=== PATIENT | male | born 1950 | race Caucasian/White ===

== ENCOUNTER 2017-05-10 09:11 | Inpatient (IN) | payer OTHER ==
[2017-05-04 11:26] LABS: Basophils # (auto) 0 uL; Basophils % (auto) 0.6 % (0.0-2.0); Hemoglobin 18.6 g/dL (13.5-17.5); INR 1.06 (0.9-1.15); Monocytes # (auto) 0.9 uL; Neutrophils # (auto) 4.6 uL; Partial Thromboplastin Time 29.1 sec (22.64-33.71); Prothrombin Time 11.6 sec (9.37-12.3)
[2017-05-04 11:28] LABS: Eosinophils # (auto) 0.7 uL; Hematocrit 55.7 % (41.0-53.0); Lymphocytes # (auto) 1.9 uL; Lymphocytes % (auto) 23.4 % (10.0-50.0); Mean Corpuscular Hemoglobin 30.6 pg (28.0-32.0); Mean Corpuscular Hgb Conc. 33.5 g/dL (32.0-36.0); Mean Corpuscular Volume 91.3 fL (80.0-100.0); Monocytes % (auto) 10.9 % (0.0-12.0); Neutrophils % (auto) 57.1 % (37.0-80.0); Nucleated Red Blood Cells % 0.1 %; Platelet Count (auto) 158 10^3/uL (140-450); Red Blood Cells 6.09 10^6/uL (4.5-5.90); Red Cell Distribution Width 13.9 % (11.8-14.3); White Blood Cell 8.1 10^3/uL (4.4-10.8)
[2017-05-04 11:34] LABS: Urine Bacteria NONE SEEN /hpf (None Seen); Urine Blood Negative /uL (Negative); Urine Specific Gravity 1.018 (1.001-1.035); Urine WBC <1 /hpf (0 - 3)
[2017-05-04 11:37] LABS: Albumin 3.7 g/dL (3.4-5.0); BUN/Creatinine Ratio 11.9; Bilirubin, Total 0.9 mg/dL (0.2-1.0); Calcium 9.4 mg/dL (8.5-10.1); Potassium 4.3 mmol/L (3.5-5.1)
[~2017-05-10] VITALS: Ht 175.3 cm; Wt 105.6 kg
[~2017-05-10 09:11] MED LIST: ASPI325T4 PO; LEVO112T4 PO; METO25TA62 PO; SIMV10TA84 PO
[2017-05-10] MEDS ORDERED: LEVOFLOXACIN 500MG 100 ML IV ONE (10:22)
[2017-05-10] MEDS ORDERED: LIDOCAINE 1% HCL (LOCAL ANESTH.) INJ 20ML MDV ONE (10:28)
[2017-05-10] MEDS ORDERED: BUPIVACAINE 0.25% INJ 50ML VIAL ONE (10:29)
[2017-05-10] MEDS ORDERED: LIDOCAINE W/ EPINEPHRINE 1 % INJ 30ML ONE (10:29)
[2017-05-10] MEDS ORDERED: MIDAZOLAM HCL 1MG/1ML-2 ML VIAL ONE (10:30)
[2017-05-10] MEDS ORDERED: ceFAZolin 1GM/50ML 50 ML IV ONE (10:30)
[2017-05-10] MEDS ORDERED: ONDANSETRON HCL 4 MG/2 ML VIAL ONE (10:31)
[2017-05-10] MEDS ORDERED: METOCLOPRAMIDE HCL 5MG/ml INJ 2ml VIAL ONE (10:31)
[2017-05-10] MEDS ORDERED: fentaNYL CITRATE 5 ML ONE (10:31)
[2017-05-10] MEDS ORDERED: LIDOCAINE HCL 2 %PF INJ 10ML AMP IJ ONE (10:31)
[2017-05-10] MEDS ORDERED: PROPOFOL 10 MG/ML 20 ML IV ONE (10:31)
[2017-05-10] MEDS ORDERED: PHENYLEPHRINE HCL 10 MG/ML VL ONE (11:33)
[2017-05-10] MEDS ORDERED: ROCURONIUM 10MG/ML 10ML VIAL IV ONE ×2 (12:03→12:04)
[2017-05-10] MEDS ORDERED: NEOSTIGMINE 1 MG/ML INJ (10mg/10ML VIAL) ONE (12:17)
[2017-05-10] MEDS ORDERED: GLYCOPYRROLATE 0.2 MG/ML 1ML VIAL ONE (12:17)
[2017-05-10] MEDS ORDERED: LABETALOL HCL 5 MG/ML 4ML SYRINGE IV PRN (13:30)
[2017-05-10] MEDS ORDERED: NALOXONE HCL 0.4 MG/ML VIAL IV PRN (13:30)
[2017-05-10] MEDS ORDERED: hydrALAZINE HCL 20 MG/ML VL IV PRN (13:30)
[2017-05-10] MEDS ORDERED: fentaNYL CITRATE 100 MCG/2 ML VL IV ONE (14:00)
[2017-05-10] MEDS ORDERED: MORPHINE SULFATE 10 MG/ML INJ 1ML SDV IV PRN (14:30)
[2017-05-10] MEDS ORDERED: ACETAMINOPHEN/CODEINE#3 (300/30mg) TAB PO PRN (14:30)
[2017-05-10] MEDS ORDERED: ONDANSETRON HCL 4 MG/2 ML VIAL IV PRN (14:30)
[2017-05-10] MEDS ORDERED: NITROGLYCERIN 0.4 MG SL TAB SL PRN (14:30)
[2017-05-10] MEDS ORDERED: diphenhdrAMINE HCL 50 MG/1 ML VL IV PRN (14:30)
[2017-05-10 15:21] LABS: BUN/Creatinine Ratio 11.4; Calcium 8.9 mg/dL (8.5-10.1); Potassium 4.3 mmol/L (3.5-5.1)
[2017-05-10 16:03] VITALS: BP 131/75
[2017-05-10] MEDS: METOPROLOL SUCCINATE XL 50 MG TAB PO SCH (16:32)
[2017-05-10] MEDS: D5W/SOD CHL 0.45% 1,000 ML IV SCH ×2 (16:38→22:52)
[2017-05-10] MEDS: CEFOXITIN SODIUM 1 GM in D5W 5% 50 ML IV SCH ×2 (16:52→23:01)
[2017-05-10 17:00] VITALS: BP 131/75
[2017-05-10 20:00] VITALS: BP 127/79
[2017-05-10] MEDS: HYDROmorphone HCL 2 MG/ML VL IV PRN (21:20)
[2017-05-10 21:30] VITALS: BP 127/79
[2017-05-10] MEDS ORDERED: PRAVASTATIN SODIUM 20 MG TAB PO SCH (22:00)
[2017-05-11 05:00] VITALS: BP 107/66
[2017-05-11] MEDS: D5W/SOD CHL 0.45% 1,000 ML IV SCH (06:02)
[2017-05-11] MEDS ORDERED: LEVOTHYROXINE SODIUM 112 MCG TAB PO SCH (07:00)
[2017-05-11 08:00] VITALS: BP 99/67
[2017-05-11 08:09] VITALS: BP 99/67
[2017-05-11] MEDS: HYDROmorphone HCL 2 MG/ML VL IV PRN ×2 (09:30→16:59)
[2017-05-11] MEDS: CEFOXITIN SODIUM 1 GM in D5W 5% 50 ML IV SCH (09:31)
[2017-05-11] MEDS: METOPROLOL SUCCINATE XL 50 MG TAB PO SCH (10:00)
[2017-05-11 12:30] VITALS: BP 105/58
[2017-05-11 14:55] VITALS: BP 105/58
[2017-05-11 17:11] VITALS: BP 114/63
== END 2017-05-11 18:30 | disposition home or self-care (01) | DRG 708 ==
LOC: SUR 09:11 → TELE-EAST 09:12 → EAST 16:46 → TELE-EAST 17:02
PROVIDERS: ADMIT Urology; ATTEND Urology
PROC: 07TC4ZZ Resection of Pelvis Lymphatic, Percutaneous Endoscopic Approach (ICD-10-PCS; 2017-05-10)
PROC: 8E0W4CZ Robotic Assisted Procedure of Trunk Region, Percutaneous Endoscopic Approach (ICD-10-PCS; 2017-05-10)
PROC: 0VT04ZZ Resection of Prostate, Percutaneous Endoscopic Approach (ICD-10-PCS; principal; 2017-05-10 10:35)
DX: C61 Malignant neoplasm of prostate (principal); I11.0 Hypertensive heart disease with heart failure; I50.9 Heart failure, unspecified; E78.5 Hyperlipidemia, unspecified; E03.9 Hypothyroidism, unspecified; I25.2 Old myocardial infarction; Z82.3 Family history of stroke; Z83.3 Family history of diabetes mellitus; Z82.49 Family history of ischemic heart disease and other diseases of the circulatory system; Z88.5 Allergy status to narcotic agent; Z88.6 Allergy status to analgesic agent; Z79.82 Long term (current) use of aspirin; Z79.899 Other long term (current) drug therapy
CPT/HCPCS: 36415; 80048; 80053; 81001; 85025; 85610; 85730; 86850; 86900; 86901; 87086; J0690; J1956; J2001; J2250; J2405; J2704; J3490; J7060

== ENCOUNTER 2017-06-01 09:56 | Emergency (ER) | payer OTHER ==
[~2017-06-01] VITALS: Ht 175.3 cm; Wt 102.1 kg
[2017-06-01 10:04] VITALS: BP 150/99
[2017-06-01] MEDS ORDERED: cefTRIAXone 1GM/50ML D5W 50 ML IV ONE ×2 (11:00)
== END 2017-06-01 12:16 | disposition home or self-care (01) ==
LOC: ER 09:56
DX: L08.9 Local infection of the skin and subcutaneous tissue, unspecified (principal); M10.9 Gout, unspecified; E78.5 Hyperlipidemia, unspecified; I10 Essential (primary) hypertension; I25.2 Old myocardial infarction; Z87.891 Personal history of nicotine dependence; Z95.1 Presence of aortocoronary bypass graft; Z88.0 Allergy status to penicillin; Z88.6 Allergy status to analgesic agent
CPT/HCPCS: 96365; 96366; 99284; J0696; J7030

== ENCOUNTER 2019-08-16 09:06 | Inpatient (IN) | payer OTHER ==
[~2019-08-16] VITALS: Ht 175.3 cm; Wt 104.8 kg
[~2019-08-16 09:06] MED LIST changes: -ASPI325T4 PO; +CLON0.1T PO; +METO-169 PO; -METO25TA62 PO
[2019-08-16 10:16] LABS: Basophils # (auto) 0.1 uL; Eosinophils # (auto) 0.4 uL; Eosinophils % (auto) 5.2 % (0.0-7.0); Lymphocytes # (auto) 1.1 uL; Monocytes # (auto) 0.9 uL; Neutrophils # (auto) 4.8 uL; Nucleated Red Blood Cells % 0.1 %
[2019-08-16 10:20] LABS: Mean Corpuscular Hemoglobin 30.4 pg (28.0-32.0); Mean Corpuscular Volume 89.3 fL (80.0-100.0); Monocytes % (auto) 12.6 % (0.0-12.0); Neutrophils % (auto) 66.2 % (37.0-80.0); Platelet Count (auto) 172 10^3/uL (140-450); Red Blood Cells 5.93 10^6/uL (4.5-5.90); Red Cell Distribution Width 13.9 % (11.8-14.3); White Blood Cell 7.3 10^3/uL (4.4-10.8)
[2019-08-16 10:31] LABS: Albumin 3.4 g/dL (3.4-5.0); Calcium 8.8 mg/dL (8.5-10.1); Potassium 4.3 mmol/L (3.5-5.1)
[2019-08-16 10:37] LABS: BUN/Creatinine Ratio 13.8; Bilirubin, Total 0.8 mg/dL (0.2-1.0); Total Protein 7.4 g/dL (6.4-8.2)
[2019-08-16] MEDS ORDERED: ONDANSETRON HCL 4 MG/2 ML VIAL IV PRN (12:30)
[2019-08-16] MEDS ORDERED: TEMAZEPAM 15 MG CAP PO PRN (12:30)
[2019-08-16] MEDS ORDERED: DOCUSATE SOD 100 MG CAP PO PRN (12:30)
[2019-08-16] MEDS ORDERED: ACETAMINOPHEN 325 MG TAB PO PRN (12:30)
[2019-08-16] MEDS ORDERED: MORPHINE SULF INJ 2 MG/ML SYRINGE 1ML IV PRN (12:30)
[2019-08-16] MEDS ORDERED: NITROGLYCERIN 0.4 MG SL TAB SL PRN (12:30)
--- NOTE | 2019-08-16 14:30 | NUR ---
Telemetry admit from ER THERESANORMSHEYLA admitted to Telemetry unit after SBAR received. Patient oriented to CHIOMA WISEMAN, primary RN, unit, room, bed, and unit policies regarding patient care and visiting hours. Patient now on continuous telemetry monitoring, tele box # 76 and telemetry reading on arrival to unit is . Patient placed on bedside oxygen, weighed by bed scale and encouraged to call if they need something. All questions and concerns addressed, patient verbalized understanding.
[2019-08-16 16:54] VITALS: BP 134/83
--- NOTE | 2019-08-16 17:27 | NUR ---
Critical Trop 0.685, MD paged awaiting to call back.
--- NOTE | 2019-08-16 18:01 | NUR ---
Dr. Ko paged regarding trop 0.675. Awaiting to call back.
[2019-08-16] MEDS: TICAGRELOR 90 MG TAB PO SCH (21:11)
[2019-08-16] MEDS: ASCORBIC ACID 500 MG TAB PO SCH (21:12)
[2019-08-16 21:52] VITALS: BP 141/93
[2019-08-16] MEDS ORDERED: ATORVASTATIN 20 MG TAB PO SCH (22:00)
[2019-08-16] MEDS: FAMOTIDINE 20 MG TAB PO SCH (22:00)
--- NOTE | 2019-08-16 23:51 | NUR ---
TROPONIN 0643 AND TRENDING DOWN.
[2019-08-17 05:24] LABS: Eosinophils # (auto) 0.4 uL; Monocytes # (auto) 0.8 uL; Neutrophils # (auto) 4.4 uL; Neutrophils % (auto) 62.6 % (37.0-80.0); Red Blood Cells 5.88 10^6/uL (4.5-5.90)
[2019-08-17 05:26] LABS: Basophils # (auto) 0.1 uL; Basophils % (auto) 0.8 % (0.0-2.0); Eosinophils % (auto) 5.8 % (0.0-7.0); Hematocrit 52.3 % (41.0-53.0); Hemoglobin 17.7 g/dL (13.5-17.5); Lymphocytes # (auto) 1.3 uL; Mean Corpuscular Hemoglobin 30.1 pg (28.0-32.0); Mean Corpuscular Hgb Conc. 33.9 g/dL (32.0-36.0); Monocytes % (auto) 11.8 % (0.0-12.0); Nucleated Red Blood Cells % 0.1 %; Platelet Count (auto) 172 10^3/uL (140-450); Red Cell Distribution Width 14.1 % (11.8-14.3)
[2019-08-17 05:33] VITALS: BP 128/91
[2019-08-17 05:39] LABS: Albumin 3.2 g/dL (3.4-5.0); Calcium 8.8 mg/dL (8.5-10.1); Potassium 4.3 mmol/L (3.5-5.1)
[2019-08-17 05:44] LABS: BUN/Creatinine Ratio 14.1; Bilirubin, Total 0.9 mg/dL (0.2-1.0)
[2019-08-17 05:49] LABS: INR 1.09 (0.9-1.15); Partial Thromboplastin Time 29.2 sec (23.64-32.05)
--- NOTE | 2019-08-17 06:39 | NUR ---
TROPONIN LEVEL IS NOW 0.535;TRENDING DOWN.
[2019-08-17] MEDS ORDERED: LEVOTHYROXINE SODIUM 112 MCG TAB PO SCH (07:00)
--- NOTE | 2019-08-17 07:20 | NUR ---
PT AWAKE, ALERT, ORIENTEDx4. DENIES DISCOMFORT AT MOMENT, EFFORTLESS BREATHING ON ROOM AIR. PT BOTHERED- VOICES DUE TO NOT BEEN SEEN BY MD AND REPORTS HE WANTS TO SEE DECKHAND TUNA BOAT. PT WAS EXPLAINED POC, PT VOICES THAT IF HE IS NOT SEEN BY MD BY 1400 HE WILL SIGN HIMSELF OUT. WILL CONTINUE TO MONITOR.
--- NOTE | 2019-08-17 08:30 | NUR ---
PT AMBULATING IN HALLWAYS, RECOMMENDED ANTI-SLIP SOCKS TO PT, PT REFUSED TO WEAR ANTI-SLIP AND PREFERRED TO STAY WITH OWN SOCKS.
[2019-08-17 09:00] VITALS: BP 153/90
[2019-08-17] MEDS ORDERED: METOPROLOL SUCCINATE XL 50 MG TAB PO SCH (10:00)
[2019-08-17] MEDS ORDERED: CLOPIDOGREL BISULFATE 75 MG TAB PO SCH (10:00)
[2019-08-17] MEDS ORDERED: ZINC SULFATE 220mg CAP or TAB PO SCH (10:00)
[2019-08-17] MEDS: FAMOTIDINE 20 MG TAB PO SCH (10:00)
[2019-08-17] MEDS ORDERED: ASPirin-EC 81 mg tab PO SCH (10:00)
[2019-08-17] MEDS ORDERED: ENOXAPARIN SOD 40 MG/0.4 ML SYRINGE SC SCH (10:00)
[2019-08-17] MEDS: ASCORBIC ACID 500 MG TAB PO SCH (10:37)
[2019-08-17] MEDS: TICAGRELOR 90 MG TAB PO SCH (10:38)
--- NOTE | 2019-08-17 13:21 | NUR ---
PT SEEN BY DR. PORTER. PER MD; PT OK TO BE DC'D DISCHARGE INSTRUCTIONS PROVIDED TO PT. PT VERBALIZED UNDERSTANDING FOR CONTINUATION OF HOME MEDICATIONS AND FOLLOW UP APPOINTMENT WITH PCP AND CARDIOLOGY. ALL EDUCATIONAL MATERIAL PROVIDED, QUESTIONS AND CONCERNS ADDRESSED. TELE BOX REMOVED AND RETURNED TO TELE DEPT. IV CATHETER DC'D, CATHETER INTACT, NO PHLEBITIS. PT SAFELY ESCORTED OUT OF UNIT.
== END 2019-08-17 13:30 | disposition home or self-care (01) | DRG 880 ==
LOC: ER 09:06 → TELE 09:07 → TELE-WESTW 14:05
PROVIDERS: ADMIT Emergency Medicine; ATTEND Emergency Medicine
DX: F41.9 Anxiety disorder, unspecified (principal); I13.0 Hypertensive heart and chronic kidney disease with heart failure and stage 1 through stage 4 chronic kidney disease, or unspecified chronic kidney disease; I25.10 Atherosclerotic heart disease of native coronary artery without angina pectoris; N18.2 Chronic kidney disease, stage 2 (mild); M10.9 Gout, unspecified; I25.2 Old myocardial infarction; I50.9 Heart failure, unspecified; J44.9 Chronic obstructive pulmonary disease, unspecified; Z90.89 Acquired absence of other organs; Z82.49 Family history of ischemic heart disease and other diseases of the circulatory system; Z83.3 Family history of diabetes mellitus; Z95.1 Presence of aortocoronary bypass graft; Z95.5 Presence of coronary angioplasty implant and graft; Z87.891 Personal history of nicotine dependence; Z79.899 Other long term (current) drug therapy
CPT/HCPCS: 36415; 71046; 80053; 83880; 84484; 85025; 85610; 85730; 87081; 93005; 93306; G0378

== ENCOUNTER 2025-03-23 09:15 | Day surgery (SDC) | payer OTHER ==
[~2025-03-23] VITALS: Ht 172.7 cm; Wt 88.5 kg
[~2025-03-23 09:15] MED LIST changes: +CHL4PW PO; -METO-169 PO; +METO-289 PO; +SIMV10TA20 PO; -SIMV10TA84 PO; +VANC125C3 PO
[2025-03-23] MEDS ORDERED: fentaNYL CITRATE 100 MCG/2 ML VL ONE (10:12)
[2025-03-23] MEDS ORDERED: MIDAZOLAM HCL 2MG/2ML 2ml VIAL (1mg/ml) ONE (10:13)
[2025-03-23] MEDS: LIDOCAINE VISCOUS 2% 15ML UD PO ONE (11:00)
[2025-03-23] MEDS: fentaNYL CITRATE 100 MCG/2 ML VL IV ONE (11:00)
[2025-03-23] MEDS: MIDAZOLAM HCL 2MG/2ML 2ml VIAL (1mg/ml) IV ONE (11:03)
[2025-03-23 11:10] VITALS: BP 123/69; PULSE 61; RESP 15; O2SAT 100
[2025-03-23 11:26] VITALS: BP 119/79; PULSE 60; RESP 12; O2SAT 99
[2025-03-23 11:41] VITALS: BP 125/81; PULSE 60; RESP 18; O2SAT 99
[2025-03-23 12:11] VITALS: BP 156/93; PULSE 60; RESP 18; O2SAT 100
--- NOTE | 2025-03-23 12:41 | DVHOP2 ---
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 The patient was brought to the cardiac lab asst in n.p.o. state. the patient was given 15 ml of oral viscous lidocaine. the patient was placed in a left lateral decubitus position with bite block in mouth. NExt conscious sedation was administered per lab asst protocol with _1_ mg of versed and __50_ mcg of fentanyl. Next a FIDEL probe was advanced to the mid esophagus with ease and multiple planar images obtained. At the completion of the procedure , probe was removed and there were no immediate complications. FINDINGS: Left Ventricle: Normal LV size and function, LVEF estimated at 50-55% Right Ventricle: NOrmal RV sfunction Left atrium: enlarged, Right atrium: normal RA Left atrial appendage: no thrombus noted, Aortic valve: sp prosthetic AV, no sig AI noted, the AV by planimeter is 1.1 cm2 and on surface echo AV mean gradient of 28 mmhg , AV max grad of 26 mmhg pht 542 msec Mitral Valve: structurally normal, moderate mitral regurg, no MS Tricuspid Valve: mild tricuspid regurgitaiton, no TS Pulmonic Valve: structurally normal, no severe PI or PS Interatrial septum: negative color flow for R to L shunt Ascending aorta: severe dilatation of [address] junction and ascending aorta, non con CT read as 60 mm . JARON MEEKS MD Mar 23, 2025 12:41
== END 2025-03-23 12:25 | disposition home or self-care (01) ==
LOC: CATH 09:15
PROVIDERS: ATTEND Internal Medicine
DX: I71.21 Aneurysm of the ascending aorta, without rupture (principal); I08.1 Rheumatic disorders of both mitral and tricuspid valves; I13.0 Hypertensive heart and chronic kidney disease with heart failure and stage 1 through stage 4 chronic kidney disease, or unspecified chronic kidney disease; I50.9 Heart failure, unspecified; N18.30 Chronic kidney disease, stage 3 unspecified; E78.5 Hyperlipidemia, unspecified; I95.9 Hypotension, unspecified; Z79.890 Hormone replacement therapy; Z79.899 Other long term (current) drug therapy; Z95.1 Presence of aortocoronary bypass graft; Z95.2 Presence of prosthetic heart valve; Z85.46 Personal history of malignant neoplasm of prostate; Z95.5 Presence of coronary angioplasty implant and graft; Z87.891 Personal history of nicotine dependence; Z88.0 Allergy status to penicillin; Z88.5 Allergy status to narcotic agent; Z82.3 Family history of stroke; Z83.3 Family history of diabetes mellitus; Z80.9 Family history of malignant neoplasm, unspecified; Z82.49 Family history of ischemic heart disease and other diseases of the circulatory system
CPT/HCPCS: 93312; 93325; J2250; J3010

== ENCOUNTER 2025-06-24 16:47 | Inpatient (IN) | payer OTHER ==
[~2025-06-24] VITALS: Ht 182.9 cm; Wt 90.0 kg
[2025-06-24 17:16] LABS: Hematocrit 30.3 % (41.0-53.0); Hemoglobin 10.0 g/dL (13.5-17.5); Mean Corpuscular Hemoglobin 31.0 pg (28.0-32.0); Mean Corpuscular Volume 93.6 fL (80.0-100.0); Nucleated Red Blood Cells % 0.0 %
[2025-06-24 17:31] LABS: Anion Gap 9 (5-15); BUN/Creatinine Ratio 9.6 (10.0-20.0); Blood Urea Nitrogen 18 mg/dL (9-23); Carbon Dioxide 24 mmol/L (20-31); Chloride 106 mmol/L (98-107); Glucose 96 mg/dL (74-106); Magnesium 2.0 mg/dL (1.6-2.6); Potassium 3.9 mmol/L (3.5-5.1); Sodium 139 mmol/L (136-145)
[2025-06-24 17:33] LABS: Alanine Aminotransferase 79 U/L (7-40); Albumin 3.0 g/dL (3.2-4.8); Alkaline Phosphatase 311 U/L (46-116); Bilirubin, Total 3.0 mg/dL (0.2-1.0); Calcium 8.2 mg/dL (8.7-10.4); Total Protein 5.4 g/dL (5.7-8.2)
--- NOTE | 2025-06-24 17:37 | ED.PDOC ---
HPI Comments CHUNCHICK: Three day of midsternal chest pain and dyspnea. Extremity pitting edema 3/4 Sent 50% resection of liver cancer at [facility]. Patient has been home with the last five days. Weight scale was severe initially but took full-dose aspirin which helped him with the his symptoms significantly. Patient got nitroglycerin in route by EMS. Vital signs are otherwise unremarkable. Past medical history: Rectal cancer,prostate cancer, right renal cancer, CAD, hypertension and 2 x [place], COPD, CHF, thyroid, gout, HLD, Past surgical history: status post prostatectomy,, status post nephrectomy, aortic aneurysm repair, aortic valve replacement Medications: Allergies: Social history: Denies ETOH, denies tobacco use, denies drug use Chief Complaint: Chest Pain Time Seen by MD: 16:47 Primary Care Provider: ASIF Bell Notes: Nurses Notes, Allergies Allergies: Coded Allergies: Morphine (Unverified Allergy, Severe, 05/04/17) Penicillins (Unverified Allergy, Severe, 05/04/17) Home Meds Active Scripts Furosemide (Lasix) 40 Mg Tab, 40 MG PO DAILY, #30 TAB Prov:MONIK COLLAZO MD 06/27/25 Cholestyramine (QUESTRAN POWDER) 4 Gm Pw, 4 GM PO BID, #14 POW Prov:LUCERO JONES MD 03/21/22 Reported Medications Clopidogrel Bisulfate (Plavix) 75 Mg Tab, 75 MG PO DAILY, TAB 06/24/25 Clonidine Hydrochloride (Clonidine Hcl) 0.1 Mg Tab, 0.1 MG PO HS for 30 Days, MG 08/07/19 Simvastatin (Simvastatin) 10 Mg Tab, 5 MG PO QPM for 30 Days, MG 08/07/19 Metoprolol Succinate (Metoprolol Succinate Er) 50 Mg Tab, 50 MG PO DAILY for 30 Days, MG 08/07/19 Levothyroxine Sodium (Levothyroxine Sodium) 112 Mcg Tab, 112 MCG PO QAM for 30 Days, MCG 05/12/14 Information Source: Patient Mode of Arrival: EMS Past Medical History PAST MEDICAL HISTORY: Cancer, CHF, COPD, Gout, High Lipids, HTN, IN, Thyroid Surgical History: CABG, PTCA, Tonsillectomy Family History Family History: Family hx of DM, Family hx of heart brissa Social History Smoker: Quit Greater Than 1 Year, Cigar Alcohol: Denies ETOH Use Drugs: Denies Drug Use Lives In: Home Was a procedure done? Was a procedure done?: No CP Differential Dx Differential Diagnosis: N/A Differential Diagnosis: Other (Ddx include but not limitied to gastritis, mus culoskeletal pain, radiculopathy, atypical chest pain, dissection, aneurysm, ACS, unstable angina, hiatal hernia, GERD, anxiety, costochondritis, PE, pneumothroax, neoplasm, cardiac ischemia, drug abuse, anemia.) Comment DDx include ACS, unstable angina, anxiety, PE, pneumothroax, neoplasm, cardiac ischemia, COPD, asthma, CHF, pleural effusion, tobacco abuse, pneumonia, hypoxia, hypercapnia, anemia., infection/sepsis., pulmonary edema. Asthma, Cardiac tamponade, infection. X-Ray, Labs, Meds, VS Vital Signs Date Time Temp Pulse Resp B/P (MAP) Pulse Ox O2 Delivery O2 Flow Rate FiO2 06/24/25 21:30 69 15 114/75 (88) 99 06/24/25 20:00 73 06/24/25 19:47 98.1 60 18 124/81 (95) 97 98.1 06/24/25 19:47 89 18 97 Room Air* 0 21 06/24/25 18:40 71 16 120/81 (94) 97 06/24/25 18:39 120/81 06/24/25 18:22 74 06/24/25 18:06 71 18 98 Room Air* 0 21 06/24/25 17:21 98.2 71 18 130/79 (96) 99 98.2 06/24/25 16:57 72 06/24/25 16:50 98.0 81 18 121/80 98 98.0 Lab Test 06/24/25 21:50 06/24/25 20:35 06/24/25 18:28 06/24/25 17:02 Range/Units Urine Color Colorless Yellow Urine Clarity Clear Clear Urine pH 6.5 5.0-9.0 Urine Specific [place] 1.008 1.001-1.035 Urine Protein Negative Negative Urine Ketones Negative Negative Urine Blood 2+ H Negative /uL Urine Nitrite Negative Negative Urine Bilirubin Negative Negative Urine Urobilinogen Normal Negative mg/dL Urine Leukocyte Esterase Negative Negative /uL Urine RBC 1 0 - 3 /hpf Urine Microscopic WBC < 1 0-3 /HPF Urine Squamous Epithelial Cells None seen <5 /hpf Urine Bacteria None seen None Seen /hpf Urine Glucose Normal Normal mg/dL Troponin I High Sensitivity 86 *H 89 *H </=54 ng/L Sodium Level 139 136-145 mmol/L Potassium Level 3.9 3.5-5.1 mmol/L Chloride Level 106 98-107 mmol/L Carbon Dioxide Level 24 20-31 mmol/L Anion Gap 9 5-15 Blood Urea Nitrogen 18 9-23 mg/dL Creatinine 1.88 H 0.700-1.30 mg/dL Glomerular Filtration Rate Calc 37 >90 mL/min BUN/Creatinine Ratio 9.6 L 10.0-20.0 Serum Glucose 96 74-106 mg/dL Calcium Level 8.2 L 8.7-10.4 mg/dL Magnesium Level 2.0 1.6-2.6 mg/dL Total Bilirubin 3.0 H 0.2-1.0 mg/dL Aspartate Amino Transferase (AST) 131 H 13-40 U/L Alanine Aminotransferase (ALT) 79 H 7-40 U/L Alkaline Phosphatase 311 H 46-116 U/L B-Type Natriuretic Peptide 241.93 0-100 pg/mL Total Protein 5.4 L 5.7-8.2 g/dL Albumin 3.0 L 3.2-4.8 g/dL Test 06/24/25 17:01 Range/Units White Blood Count 10.1 4.4-10.8 10^3/uL Red Blood Count 3.24 L 4.5-5.90 10^6/uL Hemoglobin 10.0 L 13.5-17.5 g/dL Hematocrit 30.3 L 41.0-53.0 % Mean Corpuscular Volume 93.6 80.0-100.0 fL Mean Corpuscular Hemoglobin 31.0 28.0-32.0 pg Mean Corpuscular Hemoglobin Concent 33.2 32.0-36.0 g/dL Red Cell Distribution Width 18.2 H 11.8-14.3 % Platelet Count 227 140-450 10^3/uL Mean Platelet Volume 10.6 6.9-10.8 fL Neutrophils (%) (Auto) 68.3 37.0-80.0 % Lymphocytes (%) (Auto) 8.9 L 10.0-50.0 % Monocytes (%) (Auto) 17.3 H 0.0-12.0 % Eosinophils (%) (Auto) 4.7 0.0-7.0 % Basophils (%) (Auto) 0.8 0.0-2.0 % Neutrophils # (Auto) 6.9 1.6-8.6 10 ^3/uL Lymphocytes # (Auto) 0.9 0.4-5.4 10 ^3/uL Monocytes # (Auto) 1.8 H 0-1.3 10 ^3/uL Eosinophils # (Auto) 0.5 0-0.8 10 ^3/uL Basophils # (Auto) 0.1 0-0.2 10 ^3/uL Nucleated Red Blood Cells 0.0 % D-Dimer, Quantitative > 35.20 H 0.0-0.49 mg/L FEU Troponin I High Sensitivity 113 *H </=54 ng/L [place] [id number] Ph: [phone] DIAGNOSTIC IMAGING Diagnostic Imaging Report : [id number] Signed PATIENT: SHEYLA MENDOZA HACCT: [id number] UNIT: [id number] : 1950 LOC: ER ROOM / BED: / AGE / SEX: 75 / M ADM STATUS: REG ER SERVICE 48 ORDERING PHYSICIAN: IVAN CALI DO PROCEDURE(s): CXRP - CHEST PORTABLE REASON: cp/sob ORDER NUMBER(s): [id number], ACCESSION NUMBER(s): [id number] AP portable chest CLINICAL INDICATION: cp/sob FINDINGS: Central line tip in the low superior vena cava. Heart size is slightly enlarged with a left ventricular configuration. Aorta is tortuous. Slight prominence of the bronchovascular markings in the right lower lung zone. IMPRESSION: 1. Question of mild or early congestive changes in the right lower lung zone. ATED BY: LUCIA MORENO MD DICTATED DATE/TIME: 06/24/251735 SIGNED BY: LUCIA MORENO MD SIGNED DATE/TIME: 06/24/251735 CC: Time of 1ST Reevaluation: 18:40 (The case was discussed with the admitting team (HPI, physical exam, labs and diagnostic tests that were available at the time of disposition, ED course, treatment plan) on the phone. They agreed to admit the patient to their service and assume care of this patient from this point forward. --- ZAY. ) Reevaluation 1ST: N/A Patient Education/Counseling: Diagnosis, Treatment Family Education/Counseling: No Family Present Comments MDM: patient presented with the above HPI.--cardiac---workup was initiated. patient was found with the above mentioned diagnosis. the following medications were ordered: please refer to order lists of meds and tests obtained by myself Dr. Cali. Patient ED course and VS have been stabilized. Patient has been reassessed in the ED and remained in a stable condition. Pertinent incidental findings were discussed with the patient and/or family. Patient/family voices understanding and is agreeable with plan. Patient has been observed in the ED adequate length of time to insure improvement/stability. Escalation of care considered: Consideration of escalation to observation or admission Patient was ADMITTED to the medicine team for further evaluation and treatment of their presentation. All the reports of any imaging studies that were ordered by myself were reviewed by myself. Departure 1 Departure Time of Disposition: 18:30 Impression: Primary Impression: Chest pain Additional Impressions: Dyspnea Elevated troponin Elevated d-dimer Elevated LFTs Disposition: ADMITTED INPATIENT Admit to: Tele Condition: Guarded Discharged With: Self Critical Care Note Critical Care Time?: Yes (55 min-critical care time only) Critical care comment: Due to a high probability of clinically significant, life threatening deterioration, the patient required my highest level of preparedness to intervene emergently and I personally spent this critical care time directly and personally managing the patient. This critical care time included obtaining a history; examining the patient; pulse oximetry; ordering and review of studies; arranging urgent treatment with development of a management plan; evaluation of patient's response to treatment; frequent reassessment; and, discussions with other providers. This critical care time was performed to assess and manage the high probability of imminent, life-threatening deterioration that could result in multi-organ failure. It was exclusive of separately billable procedures and treating other patients and teaching time. Please see my other sections and the rest of the note for further information on patient assessment and treatment. Heart Score Heart Score: Heart Score Response (Comments) Value History Moderate Suspicious 1 EKG Normal 0 Age >65 2 Risk Factors >3 or Hx ASHD 2 Troponin 1-2 x's Normal limit 1 Total 6 I personally scribed for [facility] CALI [facility] on 06/24/25 at 18:10. Electr onically submitted by Ilana Donnelly ([facility]ANNER[facility]). I personally scribed for IVAN CALI DO ([facility] on 06/24/25 at 18:15. E lectronically submitted by Ilana Donnelly (CAROLYN[facility]EL). I personally scribed for IVAN CALI DO ([facility]) on 06/24/25 at 18:19. Electronically submitted by Abdi Negrete (MILA). IVAN CALI DO Jun 24, 2025 17:37
[2025-06-24 18:06] VITALS: PULSE 71; RESP 18; O2SAT 98
[2025-06-24] MEDS: FUROSEMIDE 40 MG/4 ML VIAL IV ONE (18:39)
--- NOTE | 2025-06-24 18:45 | ECG ---
[facility] Test Date: 2025-06-24 Test Time: 16:57:37 Pat Name: SHEYLA MENDOZA Department: [facility] ED Room: 0215T Gender: M Iron Melter: alexander : 1950 Requested By: IVAN CALI Order Number: [id number] Reading MD: Frederick Thompson Measurements Intervals [place] Rate: 72 P: 21 [place]: 162 QRS: -46 QRSD: 96 T: 62 QT: 426 QTc: 467 Interpretive Statements Sinus rhythm Probable left atrial enlargement Consider right ventricular hypertrophy Inferolateral infarct, old Electronically Signed On 06-25-2025 17:26:04 PST by Frederick Thompson Please click the below link to view image of tracing.
--- NOTE | 2025-06-24 18:45 | ECG ---
[facility] Test Date: 2025-06-24 Test Time: 18:22:16 Pat Name: SHEYLA MENDOZA Department: [facility] ED Patient ID: [facility]-[id number] Room: 0215T Gender: M Event Planner: nereida : 1950 Requested By: IVAN CALI Order Number: [id number] Reading MD: Frederick Thompson Measurements Intervals [place] Rate: 74 P: 66 CT: 165 QRS: -51 QRSD: 92 T: 85 QT: 476 QTc: 529 Interpretive Statements Sinus rhythm Left anterior fascicular block Consider anterior infarct Prolonged QT interval Electronically Signed On 06-25-2025 17:26:17 PST by Frederick Thompson Please click the below link to view image of tracing.
[2025-06-24] MEDS: IOHEXOL 350 MG/ML 100ML IJ ONE (19:07)
--- NOTE | 2025-06-24 19:29 | DVH ---
CTA Chest with intravenous contrast INDICATION: cp/sob COMPARISON: CT CHEST WO on DOS: 05/25/25, MR ANGIO CHEST WO /W on DOS: 05/04/25, CT CHEST WO on DOS: 03/12/25 TECHNIQUE: Multidetector spiral CTA of the chest was performed of the chest with intravenous contrast. PULMONARY ANGIOGRAPHY PROTOCOL was utilized using a bolus- tracking technique centered on the main pulmonary artery. Axial, coronal and sagittal multiplanar and MIP reformats were performed. Radiation Dose : 1. Chest: CTDI volume is 27.69 mGy. Dose-length product is 1012.72 mGy*cm The dose indicators for CT are the volume Computed Tomography (CT) Dose Index (CTDIvol) and the Dose Length Product (DLP), and are measured in units of mGy and mGy-cm, respectively. These indicators are not patient dose, but values generated from the CT scanner acquisition factors. The report includes radiation exposure data for exposures received during this examination. Contrast: 100 cc Omnipaque 350. FINDINGS: Pulmonary artery: No pulmonary embolism Lower neck: Normal thyroid. Lungs: Central airways patent. Mild diffuse interlobular septal thickening with mild hazy ground-glass opacity throughout both lungs. Mild passive atelectatic changes within the dependent basal right lower lobe. Heart/Vascular Structures: Multi chamber cardiac enlargement. Previous sternotomy. Coronary calcifications. No pericardial effusion. Lymph Nodes: No adenopathy Pleura: Small right-sided pleural effusion. Musculoskeletal: No acute osseous abnormality. Soft tissues: Normal. Upper abdomen: Small volume of ascites in the upper abdomen. IMPRESSION: No pulmonary embolus. Mild pulmonary edema. Small right-sided pleural effusion with mild right basilar atelectasis /consolidation.
[2025-06-24] MEDS: SODIUM CHLORIDE 0.9% 500 ML IV ONE ×2 (19:45→22:15)
[2025-06-24 19:47] VITALS: PULSE 89; RESP 18; O2SAT 97
--- NOTE | 2025-06-24 20:57 | ECG ---
[facility] Test Date: 2025-06-24 Test Time: 19:57:36 Pat Name: SHEYLA MENDOZA Department: [facility] ED Patient ID: [facility]-[id number] Room: 0215T Gender: M Lead Caster: MAXIMO : 1950 Requested By: IVAN CALI Order Number: [id number] Reading MD: Frederick Thompson Measurements Intervals [place] Rate: 72 P: 22 [place]: 167 QRS: -46 QRSD: 100 T: 55 QT: 451 QTc: 494 Interpretive Statements Sinus rhythm Inferolateral infarct, old Electronically Signed On 06-25-2025 17:26:27 PST by Frederick Thompson Please click the below link to view image of tracing.
[2025-06-24] MEDS ORDERED: CLOP75TA28 PO (22:11)
[2025-06-24] MEDS ORDERED: MORPHINE SULFATE INJ 2 MG/ml SYRG IV PRN (22:15)
[2025-06-24] MEDS ORDERED: DOCUSATE SOD 100 MG CAP PO PRN (22:15)
[2025-06-24] MEDS ORDERED: ONDANSETRON HCL 4 MG/2 ML VIAL IV PRN (22:15)
[2025-06-24] MEDS ORDERED: NITROGLYCERIN 0.4 MG SL TAB SL PRN (22:15)
[2025-06-24] MEDS ORDERED: ACETAMINOPHEN 325 MG TAB PO PRN (22:15)
[2025-06-24 23:24] LABS: Urine Protein, UAD Negative (Negative)
[2025-06-25] VITALS (7 sets, daily range): BP systolic 126–144; BP diastolic 80–91; PULSE 67–76; RESP 18–19; TEMP 36.2; O2SAT 96–100
--- NOTE | 2025-06-25 04:06 | DVHHP2 ---
SHERRI DAHL EXTENSION EDGER 06/25/25 0406: History of Present Illness Reason for Visit: Chest pain/shortness of breath History of Present Illness 75-year-old male with past medical history of CAD, three-vessel CABG, aortic aneurysm, prostate cancer, liver cancer, single kidney, recent hepatic lobectomy (06/10/25) at [facility] presents with complaints of chest pain and shortness of breath. Chest pain is described substernal 04/17 which improved after receiving aspirin from EMS. Patient is also endorsing worsening orthopnea over the previous 4 days. Patient endorses that after his surgical intervention at [facility] was very edematous upon discharge. During the emergency department evaluation troponin 119/89/86. D-dimer elevated 35. At this time patient endorses improvement in chest pain. There are no complaints of fevers, chills, dizziness, headache, palpitations, nausea, vomiting. Cardiovascular: CAD, CHF, HTN, hyperipidemia Heme/Onc: Cancer Renal/: Chronic renal insuff Endocrine: Hypothyroidism Past Surgical History: CABG Smoke: No ALCOHOL: none Drugs: None Lives: with Family Review of Systems Constitutional: No: Fever, Chills, Sweats, Weakness, Malaise, Other Eyes: No: Pain, Vision change, Conjunctivae inflammation, Eyelid inflammation, Other, Redness ENT: No: Ear pain, Ear discharge, Nose pain, Nose discharge, Nose congestion, Mouth pain, Mouth swelling, Throat pain, Throat swelling, Other Respiratory: Shortness of breath, SOB with excertion; No: Cough, Dry, Wheezing, Hemoptysis, Pleuritic Pain, Sputum, Wheezing, Other Cardiovascular: Chest Pain, Orthopnea, Edema; No: Palpitations, Paroxysmal Noc. Dyspnea, Lt Headedness, Other Gastrointestinal: No: Nausea, Vomiting, Abdominal Pain, Diarrhea, Constipation, Melena, Hematochezia, Other Genitourinary: No Dysuria, No Frequency, No Incontinence, No Hematuria, No Retention, No Other Musculoskeletal: No: other, neck pain, shoulder pain, arm pain, back pain, hand pain, leg pain, foot pain Skin: No: Rash, Lesions, Jaundice, Bruising, Other Neurological: No: Weakness, Numbness, Incoordination, Change in speech, Confusion, Seizures, Other Allergies: Coded Allergies: Morphine (Unverified Allergy, Severe, 05/04/17) Penicillins (Unverified Allergy, Severe, 05/04/17) Medications Current Medications Medications Dose Ordered Sig/Pamela Route Start Time Stop Time Status Last Admin Dose Admin Docusate Sodium 100 mg BIDPRN PRN PO 06/24/25 22:15 Acetaminophen 650 mg Q6HP PRN PO 06/24/25 22:15 Ondansetron HCl 4 mg Q4HP PRN IV 06/24/25 22:15 Nitroglycerin 0.4 mg Q5MINP PRN SL 06/24/25 22:15 Morphine Sulfate 2 mg Q30M PRN IV 06/24/25 22:15 Furosemide 40 mg BIDD IV 06/25/25 06:00 Levothyroxine Sodium 112 mcg DAILY PO 06/25/25 10:00 Metoprolol Succinate 50 mg DAILY PO 06/25/25 10:00 Potassium Chloride 10 meq DAILY PO 06/25/25 10:00 Clopidogrel Bisulfate 75 mg DAILY PO 06/25/25 10:00 Exam Vital Signs Vital Signs Date Time Temp Pulse Resp B/P (MAP) Pulse Ox O2 Delivery O2 Flow Rate FiO2 06/25/25 01:07 68 18 98 Room Air* 0 21 06/25/25 01:07 98.0 144/80 (101) 98.0 General Appearance: Alert, Oriented X3, Cooperative, mild distress HEENT: Atraumatic, PERRLA, EOMI Respiratory: Normal air movement, Other (Diminished air exchange) Cardiovascular: Regular rate, Normal S1, Normal S2 Extremities: Normal pulses, Other (BLE 4+ pitting edema) Skin: No breakdown Neuro: Normal speech, Strength at 5/5 X4 ext Psych/Mental Status: Mental status NL, Mood NL Labs/Xrays Labs Test 06/24/25 21:50 06/24/25 20:35 06/24/25 17:02 06/24/25 17:01 Range/Units Urine Color Colorless Yellow Urine Clarity Clear Clear Urine pH 6.5 5.0-9.0 Urine Specific [place] 1.008 1.001-1.035 Urine Protein Negative Negative Urine Ketones Negative Negative Urine Blood 2+ H Negative /uL Urine Nitrite Negative Negative Urine Bilirubin Negative Negative Urine Urobilinogen Normal Negative mg/dL Urine Leukocyte Esterase Negative Negative /uL Urine RBC 1 0 - 3 /hpf Urine Microscopic WBC < 1 0-3 /HPF Urine Squamous Epithelial Cells None seen <5 /hpf Urine Bacteria None seen None Seen /hpf Urine Glucose Normal Normal mg/dL Troponin I High Sensitivity 86 *H </=54 ng/L Sodium Level 139 136-145 mmol/L Potassium Level 3.9 3.5-5.1 mmol/L Chloride Level 106 98-107 mmol/L Carbon Dioxide Level 24 20-31 mmol/L Anion Gap 9 5-15 Blood Urea Nitrogen 18 9-23 mg/dL Creatinine 1.88 H 0.700-1.30 mg/dL Glomerular Filtration Rate Calc 37 >90 mL/min BUN/Creatinine Ratio 9.6 L 10.0-20.0 Serum Glucose 96 74-106 mg/dL Calcium Level 8.2 L 8.7-10.4 mg/dL Magnesium Level 2.0 1.6-2.6 mg/dL Total Bilirubin 3.0 H 0.2-1.0 mg/dL Aspartate Amino Transferase (AST) 131 H 13-40 U/L Alanine Aminotransferase (ALT) 79 H 7-40 U/L Alkaline Phosphatase 311 H 46-116 U/L B-Type Natriuretic Peptide 241.93 0-100 pg/mL Total Protein 5.4 L 5.7-8.2 g/dL Albumin 3.0 L 3.2-4.8 g/dL White Blood Count 10.1 4.4-10.8 10^3/uL Red Blood Count 3.24 L 4.5-5.90 10^6/uL Hemoglobin 10.0 L 13.5-17.5 g/dL Hematocrit 30.3 L 41.0-53.0 % Mean Corpuscular Volume 93.6 80.0-100.0 fL Mean Corpuscular Hemoglobin 31.0 28.0-32.0 pg Mean Corpuscular Hemoglobin Concent 33.2 32.0-36.0 g/dL Red Cell Distribution Width 18.2 H 11.8-14.3 % Platelet Count 227 140-450 10^3/uL Mean Platelet Volume 10.6 6.9-10.8 fL Neutrophils (%) (Auto) 68.3 37.0-80.0 % Lymphocytes (%) (Auto) 8.9 L 10.0-50.0 % Monocytes (%) (Auto) 17.3 H 0.0-12.0 % Eosinophils (%) (Auto) 4.7 0.0-7.0 % Basophils (%) (Auto) 0.8 0.0-2.0 % Neutrophils # (Auto) 6.9 1.6-8.6 10 ^3/uL Lymphocytes # (Auto) 0.9 0.4-5.4 10 ^3/uL Monocytes # (Auto) 1.8 H 0-1.3 10 ^3/uL Eosinophils # (Auto) 0.5 0-0.8 10 ^3/uL Basophils # (Auto) 0.1 0-0.2 10 ^3/uL Nucleated Red Blood Cells 0.0 % D-Dimer, Quantitative > 35.20 H 0.0-0.49 mg/L FEU SEPSIS Sepsis Screen Date sepsis recognized/suspect: Jun 24, 2025 Time Sepsis recognized/suspect: 1950 Recent Procedure: No On Antibiotic Therapy: No Respiratory Rate >20: No Heart Rate >90: No Temp<36 C (96.8 F) or >38.3 C: No SBP <90 or MAP <65 mmHG: No New Acute Mental Status Change: No Is the patient on CPAP, BIPAP,: No Physician Orders Admit (06/24/25 22:14) Code Status (06/24/25 22:14) Vital Signs .PER UNIT PROTOCOL (06/24/25 22:14) Review Orders With Adm. (06/24/25 22:14) Encourage Activity As Tolerate (06/24/25 22:14) Consistent Carb(Ccho)Diabetes (06/25/25 Breakfast) Oxygen By Face Mask (06/24/25 22:14) Docusate Sodium Capsule (Colace Capsule) (06/24/25 22:15) Acetaminophen Tablet (Tylenol Tablet) (06/24/25 22:15) Notify Md Of Changes From Base (06/24/25 22:14) Advance Directive (06/24/25 22:14) Echo 2d Mode Cardiac Dop (06/24/25 22:14) Basic Metabolic Panel (06/25/25 05:00) Basic Metabolic Panel (06/26/25 05:00) Basic Metabolic Panel (06/27/25 05:00) Complete Blood Count (06/25/25 05:00) Complete Blood Count (06/26/25 05:00) Complete Blood Count (06/27/25 05:00) Patient Condition (06/24/25 22:14) Allergies (06/24/25 22:14) Ondansetron Hcl (Zofran) (06/24/25 22:15) Nitroglycerin Sublingual (Ntrostat Subli (06/24/25 22:15) Morphine Sulfate Injection (06/24/25 22:15) Stat Ekg For Chest Pain (06/24/25 22:14) Notify Md Of Changes From Base (06/24/25 22:14) Department Head For 24 Hours (06/24/25 22:14) Emergency Dysrhythmia Protocol (06/24/25 22:14) Rhythm Strips Once Every Shift (06/24/25 22:14) Oxygen By Nasal Cannula (06/24/25 22:14) * Cardiology Consult (06/24/25 22:14) Furosemide Injection (Lasix Injection) (06/25/25 06:00) Sodium Chloride 0.9% (06/24/25 22:15) Levothyroxine Tablet (Synthroid Tablet) (06/25/25 10:00) Metoprolol Xl Succinate (Toprol Xl) (06/25/25 10:00) Potassium Er Tablet (Klor-Con Tablet) (06/25/25 10:00) *Dr. Larry [facility] (06/24/25 22:14) Clopidogrel Bisulfate (Plavix) (06/25/25 10:00) Pt Request For Service (06/24/25 22:14) Troponin-I Hs (06/25/25 04:00) Troponin-I Hs (06/25/25 12:00) Vital Signs Date Time Temp Pulse Resp B/P (MAP) Pulse Ox O2 Delivery O2 Flow Rate FiO2 06/25/25 01:07 68 18 98 Room Air* 0 21 06/25/25 01:07 98.0 68 144/80 (101) 98 98.0 06/25/25 01:07 98.0 68 18 140/80 (100) 98 98.0 06/24/25 21:30 69 15 114/75 (88) 99 Laboratory Tests Test 06/24/25 17:01 White Blood Count 10.1 10^3/uL (4.4-10.8) Medications Medications Dose Ordered Sig/Pamela Route Start Time Stop Time Status Last Admin Dose Admin Furosemide 40 mg ONCE ONCE IV 06/24/25 18:30 06/24/25 18:31 DC 06/24/25 18:39 40 MG Sodium Chloride 500 ml @ 75 mls/hr Q6H40M ONCE IV 06/24/25 22:15 06/25/25 04:54 06/24/25 22:15 75 MLS/HR Sodium Chloride 500 ml @ 500 mls/hr Q1H ONCE IV 06/24/25 19:45 06/24/25 20:44 DC 06/24/25 19:45 500 MLS/HR Assessment/Plan Assessment/Plan Elevated Troponin Chest Pain Dyspnea with orthopnea Pulmonary edema Small right pleural effusion Elevated D dimer HX 3 vessel CABG Recent Hepatic lobectomy (06/10/25) Single Kidney LIVIA Plan Admit to telemetry Cardiology consult. Echocardiogram. Continue home medication. Diurese with Lasix. Monitor troponin level. Bronchodilators. As needed supplemental oxygen to maintain oxygen saturation greater than 93%. Nephrology consult. Monitor BMP. Trend. BUN/creatinine. Given that the patient received IV iodine contrast mild IVF hydration. NS @ 75ml/hr x 500mls. CTA Chest negative for PE. BLE US for dvt. Physical therapy evaluation. DVT PPX on oral anticoagulation Prior to admission, CT Angio of the chest was ordered per the emergency department to rule out PE. Given history of single kidney and current GFR, the patient was advised of risk associated with receiving contrast iodine including the possibility of renal failure leading to dialysis. As such contrast imaging was completed prior to admission. Plan discussed with: Patient, Daughter My Orders Orders - SHERRI DAHL NP Procedure Category Date Status Time Admit ADMIT 06/24/25 Transmitted 22:14 Code Status CODE 06/24/25 Transmitted 22:14 Vital Signs AMY 06/24/25 In Process 22:14 Review Orders With AMY 06/24/25 In Process Adm. 22:14 Encourage Activity As AMY 06/24/25 In Process Tolerate 22:14 Consistent DIET 06/25/25 Transmitted Carb(Ccho)Diabetes Breakfast Oxygen By Face Mask RT 06/24/25 Transmitted 22:14 Docusate Sodium PHA 06/24/25 In Process Capsule (Colace 22:15 Acetaminophen Tablet PHA 06/24/25 In Process (Tylenol Tablet) 22:15 Notify Of Changes AMY 06/24/25 In Process From Base 22:14 Advance Directive AMY 06/24/25 In Process 22:14 Echo 2d Mode Cardiac US 06/24/25 Logged DOP 22:14 Basic Metabolic Panel LAB 06/25/25 Logged 05:00 Basic Metabolic Panel LAB 06/26/25 Verified 05:00 Basic Metabolic Panel LAB 06/27/25 Verified 05:00 Complete Blood Count LAB 06/25/25 Logged 05:00 Complete Blood Count LAB 06/26/25 Verified 05:00 Complete Blood Count LAB 06/27/25 Verified 05:00 Patient Condition ORDERS 06/24/25 Transmitted 22:14 Allergies AMY 06/24/25 In Process 22:14 Ondansetron Hcl PHA 06/24/25 In Process (Zofran) 22:15 Nitroglycerin PHA 06/24/25 In Process Sublingual (Ntrostat 22:15 Morphine Sulfate PHA 06/24/25 In Process Injection 22:15 Stat Ekg For Chest AMY 06/24/25 In Process Pain 22:14 Notify Of Changes AMY 06/24/25 In Process From Base 22:14 Department Head For [facility] 06/24/25 In Process 24 Hours 22:14 Emergency Dysrhythmia [facility] 06/24/25 In Process Protocol 22:14 Rhythm Strips Once AMY 06/24/25 In Process Every Shift 22:14 Oxygen By Nasal RT 06/24/25 Transmitted Cannula 22:14 * Cardiology Consult CONS 06/24/25 Transmitted 22:14 Furosemide Injection PHA 06/25/25 In Process (Lasix Injection) 06:00 Sodium Chloride 0.9% PHA 06/24/25 In Process 22:15 Levothyroxine Tablet PHA 06/25/25 In Process (Synthroid Tablet) 10:00 Metoprolol Xl PHA 06/25/25 In Process Succinate (Toprol Xl) 10:00 Potassium Er Tablet PHA 06/25/25 In Process (Klor-Con Tablet) 10:00 *Dr. [facility] CONS 06/24/25 Transmitted -[place] 22:14 Clopidogrel Bisulfate PHA 06/25/25 In Process (Plavix) 10:00 Pt Request For Service PT 06/24/25 Logged 22:14 Troponin-I Hs LAB 06/25/25 Logged 04:00 Troponin-I Hs LAB 06/25/25 Logged 12:00 Date of Service: Jun 25, 2025 Billing Provider: MONIK COLLAZO MD Common Visit Codes: NOT BILLABLE MONIK COLLAZO MD 06/25/25 1436: Review of Systems Allergies: Coded Allergies: Morphine (Unverified Allergy, Severe, 05/04/17) Penicillins (Unverified Allergy, Severe, 05/04/17) SHERRI DAHL NP Jun 25, 2025 04:06 MONIK COLLAZO MD Jun 25, 2025 14:36
[2025-06-25] MEDS: FUROSEMIDE 40 MG/4 ML VIAL IV SCH (05:08)
[2025-06-25 06:06] LABS: Hematocrit 29.3 % (41.0-53.0); Hemoglobin 9.7 g/dL (13.5-17.5); Mean Corpuscular Hemoglobin 31.1 pg (28.0-32.0); Mean Corpuscular Volume 94.0 fL (80.0-100.0); Nucleated Red Blood Cells % 0.1 %
[2025-06-25 06:27] LABS: Anion Gap 10 (5-15); Carbon Dioxide 25 mmol/L (20-31); Chloride 105 mmol/L (98-107); Potassium 4.0 mmol/L (3.5-5.1); Sodium 140 mmol/L (136-145)
[2025-06-25 06:33] LABS: BUN/Creatinine Ratio 11.5 (10.0-20.0); Blood Urea Nitrogen 21 mg/dL (9-23); Glucose 87 mg/dL (74-106)
[2025-06-25 06:35] LABS: Calcium 8.3 mg/dL (8.7-10.4)
[2025-06-25] MEDS: METOPROLOL SUCCINATE XL 50 MG TAB PO SCH (10:07)
[2025-06-25] MEDS: CLOPIDOGREL BISULFATE 75 MG TAB PO SCH (10:07)
[2025-06-25] MEDS: LEVOTHYROXINE SODIUM 112 MCG TAB PO SCH (10:07)
[2025-06-25] MEDS: POTASSIUM CHL 10 Meq TABLET PO SCH (10:07)
--- NOTE | 2025-06-25 14:18 | DVHINCON2 ---
Date of service: Jun 25, 2025 Reason for Consultation LIVIA History of Present Illness 75 year old male PMH ckd Dr. Gasca clinic, solitary kidney after total nephrectomy, hx prostate CA and hx colon Ca, hx AVR presents with chest pain . nephrology called for LIVIA Past Medical History Coronary artery disease history of stent prostate cancer gout hypertension hypothyroidism. Colon cancer Past Surgical History Ileostomy and reversal Radiation Aortic valve replacement in 2005 Prostate cancer surgery in 2007 AAA dissection in 2001 Right nephrectomy in 1999 Allergies: Coded Allergies: Morphine (Unverified Allergy, Severe, 05/04/17) Penicillins (Unverified Allergy, Severe, 05/04/17) Home Meds Active Scripts Vancomycin HCl (Vancomycin HCl) 125 Mg Cap, 125 MG PO QID, #30 CAP Prov:LUCERO JONES MD 03/21/22 Cholestyramine (QUESTRAN POWDER) 4 Gm Pw, 4 GM PO BID, #14 POW Prov:LUCERO JONES MD 03/21/22 Reported Medications Clopidogrel Bisulfate (Plavix) 75 Mg Tab, 75 MG PO DAILY, TAB 06/24/25 Levothyroxine Sodium (Levothyroxine Sodium) 112 Mcg Tab, 1 TAB PO DAILYPRN 03/14/22 Clonidine Hydrochloride (Clonidine Hcl) 0.1 Mg Tab, 1 TAB PO 03/14/22 Metoprolol Succinate (Metoprolol Succinate Er) 50 Mg Tab, 1 TAB PO DAILYPRN 03/14/22 Clonidine Hydrochloride (Clonidine Hcl) 0.1 Mg Tab, 0.1 MG PO HS for 30 Days, MG 08/07/19 Simvastatin (Simvastatin) 10 Mg Tab, 5 MG PO QPM for 30 Days, MG 08/07/19 Metoprolol Succinate (Metoprolol Succinate Er) 50 Mg Tab, 50 MG PO DAILY for 30 Days, MG 08/07/19 Levothyroxine Sodium (Levothyroxine Sodium) 112 Mcg Tab, 112 MCG PO QAM for 30 Days, MCG 05/12/14 Current Medications Current Medications Medications (Trade) Dose Ordered Sig/Pamela Route PRN Reason Start Time Stop Time Status Last Admin Docusate Sodium (Colace Capsule) 100 mg BIDPRN PRN PO FOR CONSTIPATION 06/24/25 22:15 Acetaminophen (Tylenol Tablet) 650 mg Q6HP PRN PO PAIN SCALE 1-3 OR TEMP>100.4 06/24/25 22:15 Ondansetron HCl (Zofran) 4 mg Q4HP PRN IV NAUSEA / VOMITING 06/24/25 22:15 Nitroglycerin (Ntrostat Sublingual) 0.4 mg Q5MINP PRN SL FOR CHEST PAIN 06/24/25 22:15 Morphine Sulfate 2 mg Q30M PRN IV FOR CHEST PAIN 06/24/25 22:15 Furosemide (Lasix Injection) 40 mg BIDD IV 06/25/25 06:00 06/25/25 05:08 Levothyroxine Sodium (Synthroid Tablet) 112 mcg DAILY PO 06/25/25 10:00 06/25/25 10:07 Metoprolol Succinate (Toprol Xl) 50 mg DAILY PO 06/25/25 10:00 06/25/25 10:07 Potassium Chloride (Klor-Con Tablet) 10 meq DAILY PO 06/25/25 10:00 06/25/25 10:07 Clopidogrel Bisulfate (Plavix) 75 mg DAILY PO 06/25/25 10:00 06/25/25 10:07 Family History: Cerebrovascular accident (CVA) G8 MOTHER G8 MOTHER Diabetes mellitus G8 FATHER FH: cancer G8 SISTER FH: cancer G8 SISTER FH: heart disease G8 FATHER Family history: Cardiovascular disease G8 FATHER Family history: Diabetes mellitus G8 FATHER Ischemic heart disease Stroke G8 MOTHER H&P Exam Vital Signs/I&O Vital Sign Date Time Temp Pulse Resp B/P (MAP) Pulse Ox O2 Delivery O2 Flow Rate FiO2 06/25/25 12:49 97.1 73 18 132/91 (105) 96 97.1 06/25/25 07:40 Room Air* 0 21 Intake and Output 06/24/25 06/25/25 19:00 07:00 Intake Total 140 ml Output Total 1200 ml Balance -1060 ml Intake Oral 140 ml Output Urine Total 1200 ml # Voids 8 Physical Exam Elderly white male Nonacute distress abdomen is soft . Nontender, abdominal hernia No pitting edema Labs/Diagnostic Data Labs/Diagnostic Data Laboratory Tests Test 06/25/25 12:35 06/25/25 05:22 06/24/25 21:50 06/24/25 20:35 Range/Units Troponin I High Sensitivity 91 *H 109 *H 86 *H </=54 ng/L White Blood Count 8.3 4.4-10.8 10^3/uL Red Blood Count 3.11 L 4.5-5.90 10^6/uL Hemoglobin 9.7 L 13.5-17.5 g/dL Hematocrit 29.3 L 41.0-53.0 % Mean Corpuscular Volume 94.0 80.0-100.0 fL Mean Corpuscular Hemoglobin 31.1 28.0-32.0 pg Mean Corpuscular Hemoglobin Concent 33.0 32.0-36.0 g/dL Red Cell Distribution Width 18.0 H 11.8-14.3 % Platelet Count 230 140-450 10^3/uL Mean Platelet Volume 10.7 6.9-10.8 fL Neutrophils (%) (Auto) 69.2 37.0-80.0 % Lymphocytes (%) (Auto) 7.2 L 10.0-50.0 % Monocytes (%) (Auto) 16.6 H 0.0-12.0 % Eosinophils (%) (Auto) 6.2 0.0-7.0 % Basophils (%) (Auto) 0.8 0.0-2.0 % Neutrophils # (Auto) 5.7 1.6-8.6 10 ^3/uL Lymphocytes # (Auto) 0.6 0.4-5.4 10 ^3/uL Monocytes # (Auto) 1.4 H 0-1.3 10 ^3/uL Eosinophils # (Auto) 0.5 0-0.8 10 ^3/uL Basophils # (Auto) 0.1 0-0.2 10 ^3/uL Nucleated Red Blood Cells 0.1 % Sodium Level 140 136-145 mmol/L Potassium Level 4.0 3.5-5.1 mmol/L Chloride Level 105 98-107 mmol/L Carbon Dioxide Level 25 20-31 mmol/L Anion Gap 10 5-15 Blood Urea Nitrogen 21 9-23 mg/dL Creatinine 1.83 H 0.700-1.30 mg/dL Glomerular Filtration Rate Calc 38 >90 mL/min BUN/Creatinine Ratio 11.5 10.0-20.0 Serum Glucose 87 74-106 mg/dL Calcium Level 8.3 L 8.7-10.4 mg/dL Urine Color Colorless Yellow Urine Clarity Clear Clear Urine pH 6.5 5.0-9.0 Urine Specific [place] 1.008 1.001-1.035 Urine Protein Negative Negative Urine Ketones Negative Negative Urine Blood 2+ H Negative /uL Urine Nitrite Negative Negative Urine Bilirubin Negative Negative Urine Urobilinogen Normal Negative mg/dL Urine Leukocyte Esterase Negative Negative /uL Urine RBC 1 0 - 3 /hpf Urine Microscopic WBC < 1 0-3 /HPF Urine Squamous Epithelial Cells None seen <5 /hpf Urine Bacteria None seen None Seen /hpf Urine Glucose Normal Normal mg/dL Test 06/24/25 18:28 06/24/25 17:02 06/24/25 17:01 Range/Units Troponin I High Sensitivity 89 *H 113 *H </=54 ng/L Sodium Level 139 136-145 mmol/L Potassium Level 3.9 3.5-5.1 mmol/L Chloride Level 106 98-107 mmol/L Carbon Dioxide Level 24 20-31 mmol/L Anion Gap 9 5-15 Blood Urea Nitrogen 18 9-23 mg/dL Creatinine 1.88 H 0.700-1.30 mg/dL Glomerular Filtration Rate Calc 37 >90 mL/min BUN/Creatinine Ratio 9.6 L 10.0-20.0 Serum Glucose 96 74-106 mg/dL Calcium Level 8.2 L 8.7-10.4 mg/dL Magnesium Level 2.0 1.6-2.6 mg/dL Total Bilirubin 3.0 H 0.2-1.0 mg/dL Aspartate Amino Transferase (AST) 131 H 13-40 U/L Alanine Aminotransferase (ALT) 79 H 7-40 U/L Alkaline Phosphatase 311 H 46-116 U/L B-Type Natriuretic Peptide 241.93 0-100 pg/mL Total Protein 5.4 L 5.7-8.2 g/dL Albumin 3.0 L 3.2-4.8 g/dL White Blood Count 10.1 4.4-10.8 10^3/uL Red Blood Count 3.24 L 4.5-5.90 10^6/uL Hemoglobin 10.0 L 13.5-17.5 g/dL Hematocrit 30.3 L 41.0-53.0 % Mean Corpuscular Volume 93.6 80.0-100.0 fL Mean Corpuscular Hemoglobin 31.0 28.0-32.0 pg Mean Corpuscular Hemoglobin Concent 33.2 32.0-36.0 g/dL Red Cell Distribution Width 18.2 H 11.8-14.3 % Platelet Count 227 140-450 10^3/uL Mean Platelet Volume 10.6 6.9-10.8 fL Neutrophils (%) (Auto) 68.3 37.0-80.0 % Lymphocytes (%) (Auto) 8.9 L 10.0-50.0 % Monocytes (%) (Auto) 17.3 H 0.0-12.0 % Eosinophils (%) (Auto) 4.7 0.0-7.0 % Basophils (%) (Auto) 0.8 0.0-2.0 % Neutrophils # (Auto) 6.9 1.6-8.6 10 ^3/uL Lymphocytes # (Auto) 0.9 0.4-5.4 10 ^3/uL Monocytes # (Auto) 1.8 H 0-1.3 10 ^3/uL Eosinophils # (Auto) 0.5 0-0.8 10 ^3/uL Basophils # (Auto) 0.1 0-0.2 10 ^3/uL Nucleated Red Blood Cells 0.0 % D-Dimer, Quantitative > 35.20 H 0.0-0.49 mg/L FEU Assessment Acute kidney injury hemodynamically mediated Chronic kidney disease stage IIIB ; Dr. Gasca Coronary artery disease Diabetes Chest pain Hypertension From a nephrology standpoint patient's kidney function has returned to outpatient baseline Continue with home medications Maintain blood pressure Evaluation of elevated troponins and chest pain as per Cardiology recommendations Status post ultrasound of the kidney From a nephrology standpoint patient can be followed up in renal Clinic Plan discussed with: Patient BASILIA NAVARRETE MD Jun 25, 2025 14:18
--- NOTE | 2025-06-25 14:44 | DVHDS2 ---
Discharge Summary Date of Admission Jun 24, 2025 at 22:14 Date of Discharge: Jun 25, 2025 Labs/Diagnostic Data: Laboratory Results Test 06/25/25 12:35 06/25/25 05:22 06/24/25 21:50 06/24/25 17:02 Troponin I High Sensitivity 91 ng/L (</=54) White Blood Count 8.3 10^3/uL (4.4-10.8) Red Blood Count 3.11 10^6/uL (4.5-5.90) Hemoglobin 9.7 g/dL (13.5-17.5) Hematocrit 29.3 % (41.0-53.0) Mean Corpuscular Volume 94.0 fL (80.0-100.0) Mean Corpuscular Hemoglobin 31.1 pg (28.0-32.0) Mean Corpuscular Hemoglobin Concent 33.0 g/dL (32.0-36.0) Red Cell Distribution Width 18.0 % (11.8-14.3) Platelet Count 230 10^3/uL (140-450) Mean Platelet Volume 10.7 fL (6.9-10.8) Neutrophils (%) (Auto) 69.2 % (37.0-80.0) Lymphocytes (%) (Auto) 7.2 % (10.0-50.0) Monocytes (%) (Auto) 16.6 % (0.0-12.0) Eosinophils (%) (Auto) 6.2 % (0.0-7.0) Basophils (%) (Auto) 0.8 % (0.0-2.0) Neutrophils # (Auto) 5.7 10 ^3/uL (1.6-8.6) Lymphocytes # (Auto) 0.6 10 ^3/uL (0.4-5.4) Monocytes # (Auto) 1.4 10 ^3/uL (0-1.3) Eosinophils # (Auto) 0.5 10 ^3/uL (0-0.8) Basophils # (Auto) 0.1 10 ^3/uL (0-0.2) Nucleated Red Blood Cells 0.1 % Sodium Level 140 mmol/L (136-145) Potassium Level 4.0 mmol/L (3.5-5.1) Chloride Level 105 mmol/L (98-107) Carbon Dioxide Level 25 mmol/L (20-31) Anion Gap 10 (5-15) Blood Urea Nitrogen 21 mg/dL (9-23) Creatinine 1.83 mg/dL (0.700-1.30) Glomerular Filtration Rate Calc 38 mL/min (>90) BUN/Creatinine Ratio 11.5 (10.0-20.0) Serum Glucose 87 mg/dL (74-106) Calcium Level 8.3 mg/dL (8.7-10.4) Urine Color Colorless (Yellow) Urine Clarity Clear (Clear) Urine pH 6.5 (5.0-9.0) Urine Specific [place] 1.008 (1.001-1.035) Urine Protein Negative (Negative) Urine Ketones Negative (Negative) Urine Blood 2+ /uL (Negative) Urine Nitrite Negative (Negative) Urine Bilirubin Negative (Negative) Urine Urobilinogen Normal mg/dL (Negative) Urine Leukocyte Esterase Negative /uL (Negative) Urine RBC 1 /hpf (0 - 3) Urine Microscopic WBC < 1 /HPF (0-3) Urine Squamous Epithelial Cells None seen /hpf (<5) Urine Bacteria None seen /hpf (None Seen) Urine Glucose Normal mg/dL (Normal) Magnesium Level 2.0 mg/dL (1.6-2.6) Total Bilirubin 3.0 mg/dL (0.2-1.0) Aspartate Amino Transferase (AST) 131 U/L (13-40) Alanine Aminotransferase (ALT) 79 U/L (7-40) Alkaline Phosphatase 311 U/L (46-116) B-Type Natriuretic Peptide 241.93 pg/mL (0-100) Total Protein 5.4 g/dL (5.7-8.2) Albumin 3.0 g/dL (3.2-4.8) Test 06/24/25 17:01 D-Dimer, Quantitative > 35.20 mg/L FEU (0.0-0.49) Other Laboratory Tests 06/25/25 05:22 Brief Hx & Hospital Course: 75-year-old male with a known history of coronary artery disease, status post three-vessel CABG, status post PCI with a stent afterwards, history of aortic aneurysm status post aortic valve replacement, history of prostate cancer status post prostatectomy, history of right renal cancer status post right nephrectomy currently solitary kidney, recent history of liver cancer status post partial liver resection presented to the hospital with the chest pain and shortness of breaths found to have mildly elevated troponin. Cardiology was consulted. Cardiology consult was pending but patient left against medical advice before completion of workup and treatment. Condition at Discharge: Stable Final Diagnosis/Problems List 1. Chest pain with a mildly elevated troponin rule out [place] 2. Known CAD status post three-vessel CABG, status post PCI with stents 3. Chronic congestive heart failure unspecified currently compensated 4. History of prostate cancer status post prostatectomy 5. History of aortic aneurysm status post surgical intervention, status post aortic valve replacement 6. CKD Discharge Disposition: Home with Health Services SNF Discharge Will this Physician continue t: No Discharge Instruct/Medications Diet: Cardiac 2g Na,low cholest Activity: No Restrictions, As Tolerated Follow Up/Referral: Please follow up with the PCP and Cardiology in one week. Medications: Resume home medications Continued Medications: Cholestyramine (Questran Powder) 4 Gm Pw 4 GM PO BID, #14 POW Clonidine Hydrochloride (Clonidine Hcl) 0.1 Mg Tab 0.1 MG PO HS for 30 Days, MG Clopidogrel Bisulfate (Plavix) 75 Mg Tab 75 MG PO DAILY, TAB Levothyroxine Sodium (Levothyroxine Sodium) 112 Mcg Tab 112 MCG PO QAM for 30 Days, MCG Metoprolol Succinate (Metoprolol Succinate Er) 50 Mg Tab 50 MG PO DAILY for 30 Days, MG Simvastatin (Simvastatin) 10 Mg Tab 5 MG PO QPM for 30 Days, MG Discontinued Medications: Clonidine Hydrochloride (Clonidine Hcl) 0.1 Mg Tab 1 TAB PO Levothyroxine Sodium (Levothyroxine Sodium) 112 Mcg Tab 1 TAB PO DAILYPRN Metoprolol Succinate (Metoprolol Succinate Er) 50 Mg Tab 1 TAB PO DAILYPRN Vancomycin HCl (Vancomycin HCl) 125 Mg Cap 125 MG PO QID, #30 CAP Scheduled Cholestyramine (Questran Powder), 4 GM PO BID Clonidine Hydrochloride (Clonidine Hcl), 0.1 MG PO HS, (Reported) Clopidogrel Bisulfate (Plavix), 75 MG PO DAILY, (Reported) Levothyroxine Sodium (Levothyroxine Sodium), 112 MCG PO QAM, (Reported) Metoprolol Succinate (Metoprolol Succinate Er), 50 MG PO DAILY, (Reported) Simvastatin (Simvastatin), 5 MG PO QPM, (Reported) Discontinued Medications Clonidine Hydrochloride (Clonidine Hcl), 1 TAB PO, (Reported) Levothyroxine Sodium (Levothyroxine Sodium), 1 TAB PO DAILYPRN, (Reported) Metoprolol Succinate (Metoprolol Succinate Er), 1 TAB PO DAILYPRN, (Reported) Vancomycin HCl (Vancomycin HCl), 125 MG PO QID Discharge Statement: "Patient was advised to return to the ER or call 911 if any headaches, dizziness, shortness of breath, chest pain, abdominal pain, bleeding, fevers, or worsening of medical condition. Patient was counseled about treatment plan, medications, possible side effects, patientverbalized understanding. All questions were answered to the best of my ability. This discharge took greater then 30 minutes in planning, reviewing documentation, counseling the patient, and discussing with other team members." ASSESSMENT ASSESSMENT Assessment Date of Service: Jun 25, 2025 Billing Provider: MONIK COLLAZO MD Common Visit Codes: NOT BILLABLE MONIK COLLAZO MD Jun 25, 2025 14:44
--- NOTE | 2025-06-25 15:02 | DVH ---
RENAL ULTRASOUND History: matt COMPARISON: None TECHNIQUE: Multiple real-time sonographic images of the kidney and bladder were obtained in conjunction with Doppler imaging. FINDINGS: The right kidney nonvisualized, reported to be surgically absent. The left kidney measures 11.9 cm and demonstrates no evidence of hydronephrosis, perinephric fluid collection, or shadowing stone. Left renal cyst measuring 3.1 cm in the mid to upper pole. Echogenic appearance of the left kidney Urinary bladder: Prevoid urinary bladder volume is 278 mL. There is ascites fluid/free pelvic fluid. Right pleural effusion. IMPRESSION: Echogenic appearance of the left kidney can be seen with medical renal disease. Right kidney nonvisualized, reported to be removed. Ascites fluid. Right pleural effusion
--- NOTE | 2025-06-27 13:04 | DVHSR ---
APPROVED REPORT EXAM: Two-dimensional and M-mode echocardiogram with Doppler and color Doppler. Blood Pressure: 135/85 mmHg RISK FACTORS Height: 6', Weight: 198 DIMENSIONS LVDd 5.2 (3.8-5.7cm) LA (2D) 4.3 (1.9-4.0cm) Aortic Root 5.8 (2.0-3.7cm) LVDs 4.1 (2.5-4.0cm) LA (MM) (1.9-4.0cm) Aortic Cusp Exc (1.5-2.0cm) EF (%) 42.0 (55-70%) Rt. Atrium (1.9-4.0cm) Asc. Aorta 5.9 cm IVSd 1.4 (0.7-1.1cm) RV (D) (1.8-2.4cm) PWd 0.7 (0.7-1.1cm) Mitral Valve Mitral Mitral Stenosis E wave 0.73m/s MV Mean GR. mmHg A wave 1.34m/s MV Peak GR. mmHg E/A ratio 0.5 2D MVA cm2 DECEL Time 279ms PRESS 1/2 Time ms Aortic Valve Aortic Valve Aortic Stenosis V1 0.94m/s AO Mean GR. 32mmHg V2 3.56m/s AO Peak GR. 51mmHg LVOT Diameter 2.0 (1.8-2.4cm) Doppler YOHANA 0.83cm2 AI P 1/2 Time 521.58ms Pulmonic Valve V2 1.25m/s Other Information Quality : Technically Limited Rhythm : Technically limited study due to body habitus. Conclusion 1-Mildly reduced left ventricle systolic function with estimated ejection fraction of 40-45%. Mild LV global hypokinesis. There is a mild left ventricle hypertrophy 2-Normal right ventricle size and systolic function 3-Left atrial dilatation 4-Mild aortic, mitral and tricuspid regurgitation 5-Severe aortic root dilatation with diameter of 5.8 cm. Consider CTA for further evaluation if clinically correlated
== END 2025-06-25 18:33 | disposition left against medical advice (07) | DRG 280 ==
LOC: EDBD 16:47 → ER 16:47 → OVERFLOW 22:14 → TELE-CENTR 23:53
PROVIDERS: ADMIT Nurse Practitioner Family; ATTEND Nurse Practitioner Family
DX: I13.0 Hypertensive heart and chronic kidney disease with heart failure and stage 1 through stage 4 chronic kidney disease, or unspecified chronic kidney disease (principal); I50.43 Acute on chronic combined systolic (congestive) and diastolic (congestive) heart failure; I21.A1 Myocardial infarction type 2; N17.9 Acute kidney failure, unspecified; Z79.01 Long term (current) use of anticoagulants; E03.9 Hypothyroidism, unspecified; E11.22 Type 2 diabetes mellitus with diabetic chronic kidney disease; J44.9 Chronic obstructive pulmonary disease, unspecified; N18.32 Chronic kidney disease, stage 3b; Z95.2 Presence of prosthetic heart valve; Z95.1 Presence of aortocoronary bypass graft; I25.10 Atherosclerotic heart disease of native coronary artery without angina pectoris; M10.9 Gout, unspecified; E78.5 Hyperlipidemia, unspecified; Z53.29 Procedure and treatment not carried out because of patient's decision for other reasons; Z82.3 Family history of stroke; Z82.49 Family history of ischemic heart disease and other diseases of the circulatory system; Z83.3 Family history of diabetes mellitus; Z85.048 Personal history of other malignant neoplasm of rectum, rectosigmoid junction, and anus; Z85.05 Personal history of malignant neoplasm of liver; Z85.46 Personal history of malignant neoplasm of prostate; Z85.528 Personal history of other malignant neoplasm of kidney; Z86.79 Personal history of other diseases of the circulatory system; Z87.891 Personal history of nicotine dependence; Z88.0 Allergy status to penicillin; Z90.5 Acquired absence of kidney; Z90.79 Acquired absence of other genital organ(s); Z95.5 Presence of coronary angioplasty implant and graft; Z88.5 Allergy status to narcotic agent
CPT/HCPCS: 36415; 71045; 71275; 76775; 80048; 80053; 81001; 83735; 83880; 84484; 85025; 85379; 93005; 93306; 96361; 96374; 97163; G0378

== ENCOUNTER 2025-06-26 18:55 | Inpatient (IN) | payer OTHER ==
[~2025-06-26] VITALS: Ht 175.3 cm; Wt 94.0 kg
[~2025-06-26 18:55] MED LIST changes: +CLOP75TA28 PO; -VANC125C3 PO
--- NOTE | 2025-06-26 19:32 | ED.PDOC ---
History of Present Illness HPI Comments 75-year-old male with a known history of coronary artery disease, status post three-vessel CABG, status post PCI with a stent afterwards, history of aortic aneurysm status post aortic valve replacement, history of prostate cancer status post prostatectomy, history of right renal cancer status post right nephrectomy currently solitary kidney, recent history of liver cancer status post partial liver resection presented to the hospital with shortness of breaths. Patient admitted here last June 24, signed AMA yesterday, with a Final Diagnosis 1. Chest pain with a mildly elevated troponin rule out [place] 2. Known CAD status post three-vessel CABG, status post PCI with stents 3. Chronic congestive heart failure unspecified currently compensated 4. History of prostate cancer status post prostatectomy 5. History of aortic aneurysm status post surgical intervention, status post aortic valve replacement 6. CKD found to have mildly elevated troponin. Cardiology was consulted. Cardiology consult was pending but patient left against medical advice before completion of workup and treatment. At home patient is still complaining of shortness of breath and bipedal edema so he decided to come back to the ER. Saturating 98% on room air REVIEW OF SYSTEMS: General: No fever, no chills, or fatigue HEENT: No sore throat, no earache, no congestion, no neck pain. Cardiac: No chest pain. No palpitations. Lungs: (+) shortness of breath, no cough. GI: No nausea, no vomiting, no diarrhea, no constipation, no abdominal pain : No dysuria, frequency, or urgency. No hematuria. Musculoskeletal: No joint pain , no joint swelling, no extremity edema. Skin: No rash, no itching. Neuro: No headache, no dizziness, no weakness EXAM: General: Awake, alert and oriented. No acute distress. Skin: Skin in warm, dry and intact. Appropriate color for ethnicity. HEENT: The head is normocephalic and atraumatic. Conjunctivae are clear without exudates or hemorrhage. Sclera is non-icteric. EOM are intact. No signs of nystagmus. Eyelids are normal in appearance without swelling or lesions. Oral mucosa is pink and moist Neck: The neck is supple with normal range of motion. No JVD. Cardiac: Heart rate and rhythm are normal. No murmurs, gallops, or rubs are auscultated. Respiratory: No signs of respiratory distress. Abdominal: Abdomen is soft, non-tender without distention. Bowel sounds are present and normoactive in all four quadrants. Extremities: Bilateral lower extremity edema Neurological: The patient is awake, alert and oriented to person, place, and time with normal speech. Speech is clear. There is no facial asymmetry. Psychiatric: Appropriate mood and affect. Good judgement and insight Chief Complaint: Shortness of Breath Time Seen by MD: 19:31 Primary Care Provider: ASIF Bell Notes: Nurses Notes Allergies: Coded Allergies: Morphine (Unverified Allergy, Severe, 05/04/17) Penicillins (Unverified Allergy, Severe, 05/04/17) Home Meds Active Scripts Cholestyramine (QUESTRAN POWDER) 4 Gm Pw, 4 GM PO BID, #14 POW Prov:LUCERO JONES MD 03/21/22 Reported Medications Clopidogrel Bisulfate (Plavix) 75 Mg Tab, 75 MG PO DAILY, TAB 06/24/25 Clonidine Hydrochloride (Clonidine Hcl) 0.1 Mg Tab, 0.1 MG PO HS for 30 Days, MG 08/07/19 Simvastatin (Simvastatin) 10 Mg Tab, 5 MG PO QPM for 30 Days, MG 08/07/19 Metoprolol Succinate (Metoprolol Succinate Er) 50 Mg Tab, 50 MG PO DAILY for 30 Days, MG 08/07/19 Levothyroxine Sodium (Levothyroxine Sodium) 112 Mcg Tab, 112 MCG PO QAM for 30 Days, MCG 05/12/14 Discontinued Reported Medications Levothyroxine Sodium (Levothyroxine Sodium) 112 Mcg Tab, 1 TAB PO DAILYPRN 03/14/22 Clonidine Hydrochloride (Clonidine Hcl) 0.1 Mg Tab, 1 TAB PO 03/14/22 Metoprolol Succinate (Metoprolol Succinate Er) 50 Mg Tab, 1 TAB PO DAILYPRN 03/14/22 Discontinued Scripts Vancomycin HCl (Vancomycin HCl) 125 Mg Cap, 125 MG PO QID, #30 CAP Prov:LUCERO JONES MD 03/21/22 Information Source: Patient Mode of Arrival: Ambulatory Past Medical History PAST MEDICAL HISTORY: Cancer, CHF, COPD, Gout, High Lipids, HTN, [place], Thyroid Past Medical History (Other): Solitary kidney, aortic aneurysm, prostate cancer, right renal cancer, liver cancer Surgical History: CABG, PTCA, Tonsillectomy Surgical History (Other): status post three-vessel CABG, status post PCI with a stent afterwards, history of aortic aneurysm status post aortic valve replacement, history of prostate cancer status post prostatectomy, history of right renal cancer status post right nephrectomy, recent history of liver cancer status post partial liver resection Family History Family History: Family hx of DM, Family hx of heart brissa Social History Smoker: Quit Greater Than 1 Year, Cigar Alcohol: Denies ETOH Use Drugs: Denies Drug Use Lives In: Home Was a procedure done? Was a procedure done?: No EKG EKG : Pulse Rate (adult): 76 Cardiac Rhythm: NSR Hypertrophy: LVH Differential Dx Considerations may include: Anemia, electrolyte imbalance, congestive heart failure, pneumonia X-Ray, Labs, Meds, VS Vital Signs Date Time Temp Pulse Resp B/P (MAP) Pulse Ox O2 Delivery O2 Flow Rate FiO2 06/26/25 19:32 76 06/26/25 19:15 76 06/26/25 18:58 98.0 80 20 147/94 98 98.0 Lab Test 06/26/25 19:42 Range/Units White Blood Count 7.3 4.4-10.8 10^3/uL Red Blood Count 3.26 L 4.5-5.90 10^6/uL Hemoglobin 10.0 L 13.5-17.5 g/dL Hematocrit 30.1 L 41.0-53.0 % Mean Corpuscular Volume 92.2 80.0-100.0 fL Mean Corpuscular Hemoglobin 30.6 28.0-32.0 pg Mean Corpuscular Hemoglobin Concent 33.2 32.0-36.0 g/dL Red Cell Distribution Width 18.1 H 11.8-14.3 % Platelet Count 265 140-450 10^3/uL Mean Platelet Volume 10.2 6.9-10.8 fL Neutrophils (%) (Auto) 67.7 37.0-80.0 % Lymphocytes (%) (Auto) 9.0 L 10.0-50.0 % Monocytes (%) (Auto) 16.5 H 0.0-12.0 % Eosinophils (%) (Auto) 5.9 0.0-7.0 % Basophils (%) (Auto) 0.9 0.0-2.0 % Neutrophils # (Auto) 4.9 1.6-8.6 10 ^3/uL Lymphocytes # (Auto) 0.7 0.4-5.4 10 ^3/uL Monocytes # (Auto) 1.2 0-1.3 10 ^3/uL Eosinophils # (Auto) 0.4 0-0.8 10 ^3/uL Basophils # (Auto) 0.1 0-0.2 10 ^3/uL Nucleated Red Blood Cells 0.0 % Sodium Level 140 136-145 mmol/L Potassium Level 4.3 3.5-5.1 mmol/L Chloride Level 104 98-107 mmol/L Carbon Dioxide Level 27 20-31 mmol/L Anion Gap 9 5-15 Blood Urea Nitrogen 30 H 9-23 mg/dL Creatinine 2.12 H 0.700-1.30 mg/dL Glomerular Filtration Rate Calc 32 >90 mL/min BUN/Creatinine Ratio 14.2 10.0-20.0 Serum Glucose 98 74-106 mg/dL Calcium Level 8.6 L 8.7-10.4 mg/dL Troponin I High Sensitivity 96 *H </=54 ng/L B-Type Natriuretic Peptide 336.74 0-100 pg/mL Time of 1ST Reevaluation: 19:26 Reevaluation 1ST: Unchanged Patient Education/Counseling: Need For Follow Up Family Education/Counseling: No Family Present SEPSIS Sepsis Screen Date sepsis recognized/suspect: Jun 26, 2025 Time Sepsis recognized/suspect: 1900 Recent Procedure: No On Antibiotic Therapy: No Respiratory Rate >20: No Heart Rate >90: No Temp<36 C (96.8 F) or >38.3 C: No SBP <90 or MAP <65 mmHG: No New Acute Mental Status Change: No Is the patient on CPAP, BIPAP,: No Physician Orders Electrocardigram (06/26/25 19:02) Chest Xray 1 View (06/26/25 19:21) Vital Signs Date Time Temp Pulse Resp B/P (MAP) Pulse Ox O2 Delivery O2 Flow Rate FiO2 06/26/25 19:32 76 06/26/25 19:15 76 06/26/25 18:58 98.0 80 20 147/94 98 98.0 Laboratory Tests Test 06/26/25 19:42 White Blood Count 7.3 10^3/uL (4.4-10.8) Departure 1 Departure Time of Disposition: 23:27 Impression: Primary Impression: Pleural effusion Additional Impression: Elevated troponin Disposition: 09 ADMITTED INPATIENT Condition: Stable Comments 75 year old recently male left AMA after hospitalization for elevated troponin. He returned to the ED reporting continued SOB and LE edema. Cased discussed with Henry Mei. Patient admitted to hospitalist service for further treatment, evaluation and monitoring. Critical Care Note Critical Care Time?: Yes (35 min-critical care time only) Stability Stability form required: No Heart Score Heart Score: Heart Score Response (Comments) Value History Moderate Suspicious [address]-Deviation 2 Age >65 2 Risk Factors >3 or Hx ASHD 2 Troponin Normal limit 0 Total 7 I personally scribed for NHUNG THOMSON MD ([email or web address]) on 06/26/25 at 19:32. Electronically submitted by Reagan Mixon ([employer]). I personally scribed for NHUNG THOMSON MD ([email or web address]) on 06/26/25 at 19:45. Electronically submitted by Reagan Mixon ([employer]). NHUNG THOMSON MD Jun 26, 2025 19:32
[2025-06-26 20:00] VITALS: PULSE 80; RESP 18; O2SAT 88
--- NOTE | 2025-06-26 20:00 | DVH ---
CHEST RADIOGRAPH INDICATION: Pulmonary edema, pleural effusion, shortness of breath TECHNIQUE: Single frontal view of the chest was obtained COMPARISON: XY CHEST PORTABLE on DOS: 06/24/25 FINDINGS: Lines and Tubes: Internal jugular catheter in place from the right with the tip superior vena cava. Sternal wire sutures in place. Lungs: No focal consolidation. Pleura: No effusion. No pneumothorax. Cardiomediastinal contours: Unremarkable Bones: No acute osseous abnormality. IMPRESSION: 1. Right internal jugular catheter in place unchanged. 2. Mildly prominent bibasilar interstitial markings slightly worse on the left than on the previous study 06/24/2025
[2025-06-26 20:13] LABS: Hematocrit 30.1 % (41.0-53.0); Hemoglobin 10.0 g/dL (13.5-17.5); Mean Corpuscular Hemoglobin 30.6 pg (28.0-32.0); Mean Corpuscular Volume 92.2 fL (80.0-100.0); Nucleated Red Blood Cells % 0.0 %
[2025-06-26 20:25] LABS: Chloride 104 mmol/L (98-107); Potassium 4.3 mmol/L (3.5-5.1); Sodium 140 mmol/L (136-145)
[2025-06-26 20:26] LABS: Anion Gap 9 (5-15); Carbon Dioxide 27 mmol/L (20-31)
[2025-06-26 20:29] LABS: Calcium 8.6 mg/dL (8.7-10.4)
[2025-06-26 20:31] LABS: BUN/Creatinine Ratio 14.2 (10.0-20.0); Glucose 98 mg/dL (74-106)
[2025-06-26 20:32] LABS: Blood Urea Nitrogen 30 mg/dL (9-23)
[2025-06-26] MEDS ORDERED: NITROGLYCERIN 0.4 MG SL TAB SL PRN (20:45)
[2025-06-26] MEDS ORDERED: MORPHINE SULFATE INJ 2 MG/ml SYRG IV PRN (20:45)
[2025-06-26] MEDS ORDERED: ACETAMINOPHEN 325 MG TAB PO PRN (20:45)
[2025-06-26] MEDS ORDERED: DOCUSATE SOD 100 MG CAP PO PRN (20:45)
[2025-06-26] MEDS ORDERED: ONDANSETRON HCL 4 MG/2 ML VIAL IV PRN (20:45)
[2025-06-26 22:36] VITALS: PULSE 78; O2SAT 98
[2025-06-26 23:00] VITALS: BP 146/93; PULSE 84; RESP 17; TEMP 97.8; O2SAT 88
[2025-06-26 23:04] VITALS: BP 146/93; PULSE 80; PULSE 84; RESP 18; TEMP 97.8; O2SAT 88
[2025-06-27 01:00] VITALS: BP 121/73; PULSE 75; RESP 17; TEMP 98.7; O2SAT 95
--- NOTE | 2025-06-27 02:07 | DVHHP2 ---
History of Present Illness Reason for Visit: Worsening shortness of breath and edema History of Present Illness 75-year-old male with past medical history of CAD, status post three-vessel CABG, status post PCI with stent, status post aortic valve replacement, history of prostate cancer status post prostatectomy, history of right renal cancer status post right nephrectomy currently with single kidney, recent history of liver cancer status post partial liver resection presented to the hospital with worsening shortness of breath. Patient was recently admitted to the hospital on June 24 however decided to leave against medical advice returns with worsening shortness of breath. Cardiovascular: CAD, CHF, ME Heme/Onc: Cancer Past Surgical History: CABG Smoke: No ALCOHOL: none Drugs: None Lives: with Family Review of Systems Constitutional: No: Fever, Chills, Sweats, Weakness, Malaise, Other Eyes: No: Pain, Vision change, Conjunctivae inflammation, Eyelid inflammation, Other, Redness ENT: No: Ear pain, Ear discharge, Nose pain, Nose discharge, Nose congestion, Mouth pain, Mouth swelling, Throat pain, Throat swelling, Other Respiratory: Shortness of breath, SOB with excertion; No: Cough, Dry, Wheezing, Hemoptysis, Pleuritic Pain, Sputum, Wheezing, Other Cardiovascular: Orthopnea, Edema; No: Chest Pain, Palpitations, Paroxysmal Noc. Dyspnea, Lt Headedness, Other Gastrointestinal: No: Nausea, Vomiting, Abdominal Pain, Diarrhea, Constipation, Melena, Hematochezia, Other Genitourinary: No Dysuria, No Frequency, No Incontinence, No Hematuria, No Retention, No Other Musculoskeletal: No: other, neck pain, shoulder pain, arm pain, back pain, hand pain, leg pain, foot pain Skin: No: Rash, Lesions, Jaundice, Bruising, Other Neurological: No: Weakness, Numbness, Incoordination, Change in speech, Confus ion, Seizures, Other Allergies: Coded Allergies: Morphine (Unverified Allergy, Severe, 05/04/17) Penicillins (Unverified Allergy, Severe, 05/04/17) Medications Current Medications Medications Dose Ordered Sig/Pamela Route Start Time Stop Time Status Last Admin Dose Admin Docusate Sodium 100 mg BIDPRN PRN PO 06/26/25 20:45 Acetaminophen 650 mg Q6HP PRN PO 06/26/25 20:45 Ondansetron HCl 4 mg Q4HP PRN IV 06/26/25 20:45 Nitroglycerin 0.4 mg Q5MINP PRN SL 06/26/25 20:45 Clopidogrel Bisulfate 75 mg DAILY PO 06/27/25 10:00 Levothyroxine Sodium 112 mcg QAM@0600 PO 06/27/25 06:00 Metoprolol Succinate 50 mg DAILY PO 06/27/25 10:00 Exam Vital Signs Vital Signs Date Time Temp Pulse Resp B/P (MAP) Pulse Ox O2 Delivery O2 Flow Rate FiO2 06/26/25 23:04 97.8 84 18 146/93 (110) 88 97.8 06/26/25 22:36 Room Air* 0 21 General Appearance: Alert, Oriented X3, moderate distress HEENT: Atraumatic, PERRLA, EOMI Respiratory: Normal air movement, Other (Diminished air exchange) Cardiovascular: Normal S1, Normal S2 Abdominal: Normal bowel sounds, Soft, No tenderness Extremities: Other (Bilateral lower extremity 3+ pitting edema) Neuro: Normal speech, Strength at 5/5 X4 ext Psych/Mental Status: Mental status NL, Mood NL Labs/Xrays Labs Test 06/26/25 19:42 Range/Units White Blood Count 7.3 4.4-10.8 10^3/uL Red Blood Count 3.26 L 4.5-5.90 10^6/uL Hemoglobin 10.0 L 13.5-17.5 g/dL Hematocrit 30.1 L 41.0-53.0 % Mean Corpuscular Volume 92.2 80.0-100.0 fL Mean Corpuscular Hemoglobin 30.6 28.0-32.0 pg Mean Corpuscular Hemoglobin Concent 33.2 32.0-36.0 g/dL Red Cell Distribution Width 18.1 H 11.8-14.3 % Platelet Count 265 140-450 10^3/uL Mean Platelet Volume 10.2 6.9-10.8 fL Neutrophils (%) (Auto) 67.7 37.0-80.0 % Lymphocytes (%) (Auto) 9.0 L 10.0-50.0 % Monocytes (%) (Auto) 16.5 H 0.0-12.0 % Eosinophils (%) (Auto) 5.9 0.0-7.0 % Basophils (%) (Auto) 0.9 0.0-2.0 % Neutrophils # (Auto) 4.9 1.6-8.6 10 ^3/uL Lymphocytes # (Auto) 0.7 0.4-5.4 10 ^3/uL Monocytes # (Auto) 1.2 0-1.3 10 ^3/uL Eosinophils # (Auto) 0.4 0-0.8 10 ^3/uL Basophils # (Auto) 0.1 0-0.2 10 ^3/uL Nucleated Red Blood Cells 0.0 % Sodium Level 140 136-145 mmol/L Potassium Level 4.3 3.5-5.1 mmol/L Chloride Level 104 98-107 mmol/L Carbon Dioxide Level 27 20-31 mmol/L Anion Gap 9 5-15 Blood Urea Nitrogen 30 H 9-23 mg/dL Creatinine 2.12 H 0.700-1.30 mg/dL Glomerular Filtration Rate Calc 32 >90 mL/min BUN/Creatinine Ratio 14.2 10.0-20.0 Serum Glucose 98 74-106 mg/dL Calcium Level 8.6 L 8.7-10.4 mg/dL Troponin I High Sensitivity 96 *H </=54 ng/L B-Type Natriuretic Peptide 336.74 0-100 pg/mL SEPSIS Sepsis Screen Date sepsis recognized/suspect: Jun 26, 2025 Time Sepsis recognized/suspect: 1900 Recent Procedure: No On Antibiotic Therapy: No Respiratory Rate >20: No Heart Rate >90: No Temp<36 C (96.8 F) or >38.3 C: No SBP <90 or MAP <65 mmHG: No New Acute Mental Status Change: No Is the patient on CPAP, BIPAP,: No Physician Orders Electrocardigram (06/26/25 19:02) Chest Xray 1 View (06/26/25 19:21) Admit (06/26/25 20:38) Code Status (06/26/25 20:38) Vital Signs .PER UNIT PROTOCOL (06/26/25 20:38) Review Orders With Adm. (06/26/25 20:38) Encourage Activity As Tolerate (06/26/25 20:38) [facility]Diabetes (06/27/25 Breakfast) Oxygen By Face Mask (06/26/25 20:38) Docusate Sodium Capsule (Colace Capsule) (06/26/25 20:45) Acetaminophen Tablet (Tylenol Tablet) (06/26/25 20:45) Notify Md Of Changes From Base (06/26/25 20:38) Advance Directive (06/26/25:38) Echo 2d Mode Cardiac Dop (06/26/25:38) Basic Metabolic Panel (06/27/25 05:00) Basic Metabolic Panel (06/28/25 05:00) Basic Metabolic Panel (06/29/25 05:00) Basic Metabolic Panel (06/30/25 05:00) Complete Blood Count (06/27/25 05:00) Complete Blood Count (06/28/25 05:00) Complete Blood Count (06/29/25 05:00) Complete Blood Count (06/30/25 05:00) Patient Condition (06/26/25:) Allergies (06/26/25:38) Ondansetron Hcl (Zofran) (06/26/25 20:45) Nitroglycerin Sublingual (Ntrostat Subli (06/26/25 20:45) Stat Ekg For Chest Pain (06/26/25:38) Notify Md Of Changes From Base (06/26/25 20:38) 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 (06/26/25 20:38) Clopidogrel Bisulfate (Plavix) (06/27/25 10:00) Levothyroxine Tablet (Synthroid Tablet) (06/27/25 06:00) Metoprolol Xl Succinate (Toprol Xl) (06/27/25 10:00) Strict I & O QSHIFT (06/26/25 20:38) Vital Signs Date Time Temp Pulse Resp B/P (MAP) Pulse Ox O2 Delivery O2 Flow Rate FiO2 06/26/25 23:04 97.8 84 18 146/93 (110) 88 97.8 06/26/25 23:00 97.8 84 17 146/93 (110) 88 97.8 06/26/25 22:36 98.6 78 14 131/88 (102) 98 98.6 06/26/25 22:36 78 98 Room Air* 0 21 06/26/25 22:36 98.6 78 14 131/88 (102) 98 98.6 06/26/25 19:32 76 06/26/25 19:15 76 06/26/25 18:58 98.0 80 20 147/94 98 98.0 Laboratory Tests Test 06/26/25 19:42 White Blood Count 7.3 10^3/uL (4.4-10.8) Assessment/Plan Assessment/Plan Dyspnea Acute kidney injury on CKD Elevated troponin Fluid overload Acute on Chronic CHF exacerbation CAD s/p 3 vessel CABG Hx Cancer s/p partial liver resection Hx prostate cancer s/p prostatectomy Plan Admit telemetry Cardiology consult. Echocardiogram. IV Lasix. Continue home medication. Nephrology consult. Monitor BMP. Trend BUN/creatinine. As needed a supplemental oxygen to maintain O2 saturation greater than 93%. DVT ppx on oral anticoagulation. Plan discussed with: Patient My Orders Orders - SHERRI DAHL NP Procedure Category Date Status Time Admit ADMIT 06/26/25 Transmitted 20:38 Code Status CODE 06/26/25 Transmitted 20:38 Vital Signs AMY 06/26/25 In Process 20:38 Review Orders With AMY 06/26/25 In Process Adm. 20:38 Encourage Activity As AMY 06/26/25 In Process Tolerate 20:38 Consistent DIET 06/27/25 Transmitted Carb(Ccho)Diabetes Breakfast Oxygen By Face Mask RT 06/26/25 Transmitted 20:38 Docusate Sodium PHA 06/26/25 In Process Capsule (Colace 20:45 Acetaminophen Tablet PHA 06/26/25 In Process (Tylenol Tablet) 20:45 Notify Of Changes AMY 06/26/25 In Process From Base 20:38 Advance Directive AMY 06/26/25 In Process 20:38 Echo 2d Mode Cardiac US 06/26/25 Logged DOP 20:38 Basic Metabolic Panel LAB 06/27/25 Logged 05:00 Basic Metabolic Panel LAB 06/28/25 Verified 05:00 Basic Metabolic Panel LAB 06/29/25 Verified 05:00 Basic Metabolic Panel LAB 06/30/25 Verified 05:00 Complete Blood Count LAB 06/27/25 Logged 05:00 Complete Blood Count LAB 06/28/25 Verified 05:00 Complete Blood Count LAB 06/29/25 Verified 05:00 Complete Blood Count LAB 06/30/25 Verified 05:00 Patient Condition ORDERS 06/26/25 Transmitted 20:38 Allergies AMY 06/26/25 In Process 20:38 Ondansetron Hcl PHA 06/26/25 In Process (Zofran) 20:45 Nitroglycerin PHA 06/26/25 In Process Sublingual (Ntrostat 20:45 Stat Ekg For Chest AMY 06/26/25 In Process Pain 20:38 Notify Of Changes [facility] 06/26/25 In Process From Base 20:38 Television Maintenance Worker For AMY 06/26/25 In Process 24 Hours 20:38 Emergency Dysrhythmia AMY 06/26/25 In Process Protocol 20:38 Rhythm Strips Once [facility] 06/26/25 In Process Every Shift 20:38 Oxygen By Nasal RT 06/26/25 Transmitted Cannula 20:38 * Cardiology Consult CONS 06/26/25 Transmitted 20:38 *[facility] CONS 06/26/25 Transmitted -[place] 20:38 Clopidogrel Bisulfate PHA 06/27/25 In Process (Plavix) 10:00 Levothyroxine Tablet PHA 06/27/25 In Process (Synthroid Tablet) 06:00 Metoprolol Xl PHA 06/27/25 In Process Succinate (Toprol Xl) 10:00 Strict I & O AMY 06/26/25 In Process 20:38 Date of Service: Jun 27, 2025 Billing Provider: MONIK COLLAZO MD Common Visit Codes: NOT BILLABLE SHERRI DAHL NP Jun 27, 2025 02:06
[2025-06-27 05:00] VITALS: BP 125/81; PULSE 79; RESP 18; TEMP 97.8; O2SAT 99
[2025-06-27] MEDS: LEVOTHYROXINE SODIUM 112 MCG TAB PO SCH (05:12)
[2025-06-27 05:42] LABS: Hematocrit 29.1 % (41.0-53.0); Hemoglobin 9.6 g/dL (13.5-17.5); Mean Corpuscular Hemoglobin 30.5 pg (28.0-32.0); Mean Corpuscular Volume 92.3 fL (80.0-100.0); Nucleated Red Blood Cells % 0.0 %
[2025-06-27 05:47] LABS: Anion Gap 11 (5-15); Carbon Dioxide 25 mmol/L (20-31); Chloride 104 mmol/L (98-107); Potassium 3.8 mmol/L (3.5-5.1); Sodium 140 mmol/L (136-145)
[2025-06-27 05:49] LABS: Calcium 8.6 mg/dL (8.7-10.4)
[2025-06-27 05:53] LABS: BUN/Creatinine Ratio 11.2 (10.0-20.0); Blood Urea Nitrogen 23 mg/dL (9-23); Glucose 91 mg/dL (74-106)
[2025-06-27 08:00] VITALS: PULSE 68; PULSE 71; RESP 20
[2025-06-27] MEDS: FUROSEMIDE 40 MG/4 ML VIAL IV SCH (09:06)
[2025-06-27] MEDS: METOPROLOL SUCCINATE XL 50 MG TAB PO SCH (09:07)
[2025-06-27] MEDS: CLOPIDOGREL BISULFATE 75 MG TAB PO SCH (09:07)
[2025-06-27 09:09] VITALS: BP 143/100; PULSE 71; RESP 20; TEMP 97.7; O2SAT 99
--- NOTE | 2025-06-27 10:17 | DVHINCON2 ---
Date of service: Jun 26, 2025 Referring Physician Sigifredo Reason for Consultation Elevated trop History of Present Illness This is a 75 year old male with a PMH of coronary artery disease status post three-vessel CABG, status post PCI with a stent afterwards, aortic aneurysm status post aortic valve replacement, prostate cancer status post prostatectomy, right renal cancer status post right nephrectomy currently solitary kidney, recent history of liver cancer status post partial liver resection who presented to the ED with c/o shortness of breaths. Patient admitted here earlier this week and signed out AMA. EKG is NSR at 76. Chest x-ray shows mildly prominent bibasilar interstitial markings slightly worse on the left than on the previous study 06/24/2025. 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 Troponin 96. Patient was admitted to the hospital. I am asked to consult on this patient. Family History: Cerebrovascular accident (CVA) G8 MOTHER G8 MOTHER Diabetes mellitus G8 FATHER FH: cancer G8 SISTER FH: cancer G8 SISTER FH: heart disease G8 FATHER Family history: Cardiovascular disease G8 FATHER Family history: Diabetes mellitus G8 FATHER Ischemic heart disease Stroke G8 MOTHER Allergies: Coded Allergies: Morphine (Unverified Allergy, Severe, 05/04/17) Penicillins (Unverified Allergy, Severe, 05/04/17) Home Meds Active Scripts Cholestyramine (QUESTRAN POWDER) 4 Gm Pw, 4 GM PO BID, #14 POW Prov:LUCERO JONES MD 03/21/22 Reported Medications Clopidogrel Bisulfate (Plavix) 75 Mg Tab, 75 MG PO DAILY, TAB 06/24/25 Clonidine Hydrochloride (Clonidine Hcl) 0.1 Mg Tab, 0.1 MG PO HS for 30 Days, MG 08/07/19 Simvastatin (Simvastatin) 10 Mg Tab, 5 MG PO QPM for 30 Days, MG 08/07/19 Metoprolol Succinate (Metoprolol Succinate Er) 50 Mg Tab, 50 MG PO DAILY for 30 Days, MG 08/07/19 Levothyroxine Sodium (Levothyroxine Sodium) 112 Mcg Tab, 112 MCG PO QAM for 30 D ays, MCG 05/12/14 Discontinued Reported Medications Levothyroxine Sodium (Levothyroxine Sodium) 112 Mcg Tab, 1 TAB PO DAILYPRN 03/14/22 Clonidine Hydrochloride (Clonidine Hcl) 0.1 Mg Tab, 1 TAB PO 03/14/22 Metoprolol Succinate (Metoprolol Succinate Er) 50 Mg Tab, 1 TAB PO DAILYPRN 03/14/22 Discontinued Scripts Vancomycin HCl (Vancomycin HCl) 125 Mg Cap, 125 MG PO QID, #30 CAP Prov:LUCERO JONES MD 03/21/22 Current Medications Current Medications Medications (Trade) Dose Ordered Sig/Pamela Route PRN Reason Start Time Stop Time Status Last Admin Docusate Sodium (Colace Capsule) 100 mg BIDPRN PRN PO FOR CONSTIPATION 06/26/25 20:45 Acetaminophen (Tylenol Tablet) 650 mg Q6HP PRN PO PAIN SCALE 1-3 OR TEMP>100.4 06/26/25 20:45 Ondansetron HCl (Zofran) 4 mg Q4HP PRN IV NAUSEA / VOMITING 06/26/25 20:45 Nitroglycerin (Ntrostat Sublingual) 0.4 mg Q5MINP PRN SL FOR CHEST PAIN 06/26/25 20:45 Morphine Sulfate 2 mg Q30M PRN IV FOR CHEST PAIN 06/26/25 20:45 06/26/25 22:17 DC Clopidogrel Bisulfate (Plavix) 75 mg DAILY PO 06/27/25 10:00 06/27/25 09:07 Levothyroxine Sodium (Synthroid Tablet) 112 mcg QAM@0600 PO 06/27/25 06:00 06/27/25 05:12 Metoprolol Succinate (Toprol Xl) 50 mg DAILY PO 06/27/25 10:00 06/27/25 09:07 Furosemide (Lasix Injection) 40 mg DAILY IV 06/27/25 10:00 06/27/25 09:06 Review of Systems General: No fever, no chills, or fatigue HEENT: No sore throat, no earache, no congestion, no neck pain. Cardiac: No chest pain. No palpitations. Lungs: (+) shortness of breath, no cough. GI: No nausea, no vomiting, no diarrhea, no constipation, no abdominal pain : No dysuria, frequency, or urgency. No hematuria. Musculoskeletal: No joint pain , no joint swelling, no extremity edema. Skin: No rash, no itching. Neuro: No headache, no dizziness, no weakness Vital Signs Vital Signs Date Time Temp Pulse Resp B/P (MAP) Pulse Ox O2 Delivery O2 Flow Rate FiO2 12/20/25 09:09 97.7 71 20 143/100 (114) 99 97.7 06/27/25 08:00 Room Air* 0 99 21 Physical Exam GENERAL: Alert and oriented x 3. No acute distress. EYES: PERRL, EOMI. Anicteric. HENT: Moist mucous membranes. LUNGS: Clear to auscultation bilaterally. CARDIOVASCULAR: Regular rate and rhythm. ABDOMEN: Soft, non-tender and non-distended. EXTREMITIES: No edema. NEUROLOGIC: No focal neurological deficits. SKIN: Warm, dry. Labs/Diagnostic Data Labs Test 06/27/25 09:50 06/27/25 04:59 06/26/25 19:42 Range/Units White Blood Count 6.7 4.4-10.8 10^3/uL Red Blood Count 3.15 L 4.5-5.90 10^6/uL Hemoglobin 9.6 L 13.5-17.5 g/dL Hematocrit 29.1 L 41.0-53.0 % Mean Corpuscular Volume 92.3 80.0-100.0 fL Mean Corpuscular Hemoglobin 30.5 28.0-32.0 pg Mean Corpuscular Hemoglobin Concent 33.1 32.0-36.0 g/dL Red Cell Distribution Width 18.1 H 11.8-14.3 % Platelet Count 251 140-450 10^3/uL Mean Platelet Volume 10.3 6.9-10.8 fL Neutrophils (%) (Auto) 67.7 37.0-80.0 % Lymphocytes (%) (Auto) 9.1 L 10.0-50.0 % Monocytes (%) (Auto) 16.0 H 0.0-12.0 % Eosinophils (%) (Auto) 6.2 0.0-7.0 % Basophils (%) (Auto) 1.0 0.0-2.0 % Neutrophils # (Auto) 4.5 1.6-8.6 10 ^3/uL Lymphocytes # (Auto) 0.6 0.4-5.4 10 ^3/uL Monocytes # (Auto) 1.1 0-1.3 10 ^3/uL Eosinophils # (Auto) 0.4 0-0.8 10 ^3/uL Basophils # (Auto) 0.1 0-0.2 10 ^3/uL Nucleated Red Blood Cells 0.0 % Sodium Level 140 136-145 mmol/L Potassium Level 3.8 3.5-5.1 mmol/L Chloride Level 104 98-107 mmol/L Carbon Dioxide Level 25 20-31 mmol/L Anion Gap 11 5-15 Blood Urea Nitrogen 23 9-23 mg/dL Creatinine 2.05 H 0.700-1.30 mg/dL Glomerular Filtration Rate Calc 33 >90 mL/min BUN/Creatinine Ratio 11.2 10.0-20.0 Serum Glucose 91 74-106 mg/dL Calcium Level 8.6 L 8.7-10.4 mg/dL B-Type Natriuretic Peptide 336.74 0-100 pg/mL Assessment Elevated troponin. Dyspnea. Acute kidney injury on CKD. Fluid overload. Acute on chronic CHF exacerbation. CAD s/p 3 vessel CABG. History of cancer s/p partial liver resection. History of prostate cancer s/p prostatectomy. Plan/Recommendation I agree with your ongoing assessment and care of plan. Echocardiogram. Plavix, Metoprolol. Diuretics with Lasix. Nitro SL. Additional plan as per the hospital course. A total of 45 minutes was spent reviewing the patient record, examining the patient, making a diagnostic and therapeutic plan, discussing this plan with medical personnel, following up on diagnostic studies and following the patient for clinical stability excluding any and all procedures. At least 50% of this time was spent in direct, [id number] contact. Plan discussed with: Patient LILLIAM CHANDLER MD Jun 27, 2025 10:17
[2025-06-27 13:00] VITALS: BP 130/87; PULSE 69; RESP 18; TEMP 97.6; O2SAT 99
--- NOTE | 2025-06-27 15:58 | DVHINCON2 ---
Date of service: Jun 27, 2025 Reason for Consultation ckd History of Present Illness 75 year old male PMH ckd Dr[facility], solitary kidney after total nephrectomy, hx prostate CA and hx colon Ca, hx AVR presents with chest pain . nephrology called for LIVIA reports he AMA 2 days ago Patient returned to the hospital less than 48 hours later complaining of SOB Past Medical History Coronary artery disease history of stent prostate cancer gout hypertension hypothyroidism. Colon cancer Past Surgical History Ileostomy and reversal Radiation Aortic valve replacement in 2005 Prostate cancer surgery in 2007 AAA dissection in 2001 Right nephrectomy in 1999 Allergies: Coded Allergies: Morphine (Unverified Allergy, Severe, 05/04/17) Penicillins (Unverified Allergy, Severe, 05/04/17) Home Meds Active Scripts Cholestyramine (QUESTRAN POWDER) 4 Gm Pw, 4 GM PO BID, #14 POW Prov:LUCERO JONES MD 03/21/22 Reported Medications Clopidogrel Bisulfate (Plavix) 75 Mg Tab, 75 MG PO DAILY, TAB 06/24/25 Clonidine Hydrochloride (Clonidine Hcl) 0.1 Mg Tab, 0.1 MG PO HS for 30 Days, MG 08/07/19 Simvastatin (Simvastatin) 10 Mg Tab, 5 MG PO QPM for 30 Days, MG 08/07/19 Metoprolol Succinate (Metoprolol Succinate Er) 50 Mg Tab, 50 MG PO DAILY for 30 Days, MG 08/07/19 Levothyroxine Sodium (Levothyroxine Sodium) 112 Mcg Tab, 112 MCG PO QAM for 30 Days, MCG 05/12/14 Discontinued Reported Medications Levothyroxine Sodium (Levothyroxine Sodium) 112 Mcg Tab, 1 TAB PO DAILYPRN 03/14/22 Clonidine Hydrochloride (Clonidine Hcl) 0.1 Mg Tab, 1 TAB PO 03/14/22 Metoprolol Succinate (Metoprolol Succinate Er) 50 Mg Tab, 1 TAB PO DAILYPRN 03/14/22 Discontinued Scripts Vancomycin HCl (Vancomycin HCl) 125 Mg Cap, 125 MG PO QID, #30 CAP Prov:LUCERO JONES MD 03/21/22 Current Medications Current Medications Medications (Trade) Dose Ordered Sig/Pamela Route PRN Reason Start Time Stop Time Status Last Admin Docusate Sodium (Colace Capsule) 100 mg BIDPRN PRN PO FOR CONSTIPATION 06/26/25 20:45 Acetaminophen (Tylenol Tablet) 650 mg Q6HP PRN PO PAIN SCALE 1-3 OR TEMP>100.4 06/26/25 20:45 Ondansetron HCl (Zofran) 4 mg Q4HP PRN IV NAUSEA / VOMITING 06/26/25 20:45 Nitroglycerin (Ntrostat Sublingual) 0.4 mg Q5MINP PRN SL FOR CHEST PAIN 06/26/25 20:45 Morphine Sulfate 2 mg Q30M PRN IV FOR CHEST PAIN 06/26/25 20:45 06/26/25 22:17 DC Clopidogrel Bisulfate (Plavix) 75 mg DAILY PO 06/27/25 10:00 06/27/25 09:07 Levothyroxine Sodium (Synthroid Tablet) 112 mcg QAM@0600 PO 06/27/25 06:00 06/27/25 05:12 Metoprolol Succinate (Toprol Xl) 50 mg DAILY PO 06/27/25 10:00 06/27/25 09:07 Furosemide (Lasix Injection) 40 mg DAILY IV 06/27/25 10:00 06/27/25 09:06 Family History: Cerebrovascular accident (CVA) G8 MOTHER G8 MOTHER Diabetes mellitus G8 FATHER FH: cancer G8 SISTER FH: cancer G8 SISTER FH: heart disease G8 FATHER Family history: Cardiovascular disease G8 FATHER Family history: Diabetes mellitus G8 FATHER Ischemic heart disease Stroke G8 MOTHER Review of Systems SOB H&P Exam Vital Signs/I&O Vital Sign Date Time Temp Pulse Resp B/P (MAP) Pulse Ox O2 Delivery O2 Flow Rate FiO2 06/27/25 13:00 97.6 69 18 130/87 (101) 99 97.6 06/27/25 08:00 Room Air* 0 99 21 Intake and Output 06/26/25 06/27/25 19:00 07:00 Intake Total 400 ml Output Total 600 ml Balance -200 ml Intake Oral 400 ml Output Urine Total 600 ml # Bowel Movements 1 Physical Exam elderly male NAD breathing RA + murmur no pitting edema Labs/Diagnostic Data Labs/Diagnostic Data Laboratory Tests Test 06/27/25 09:50 06/27/25 04:59 06/26/25 19:42 Range/Units Troponin I High Sensitivity 104 *H 96 *H 96 *H </=54 ng/L White Blood Count 6.7 7.3 4.4-10.8 10^3/uL Red Blood Count 3.15 L 3.26 L 4.5-5.90 10^6/uL Hemoglobin 9.6 L 10.0 L 13.5-17.5 g/dL Hematocrit 29.1 L 30.1 L 41.0-53.0 % Mean Corpuscular Volume 92.3 92.2 80.0-100.0 fL Mean Corpuscular Hemoglobin 30.5 30.6 28.0-32.0 pg Mean Corpuscular Hemoglobin Concent 33.1 33.2 32.0-36.0 g/dL Red Cell Distribution Width 18.1 H 18.1 H 11.8-14.3 % Platelet Count 251 265 140-450 10^3/uL Mean Platelet Volume 10.3 10.2 6.9-10.8 fL Neutrophils (%) (Auto) 67.7 67.7 37.0-80.0 % Lymphocytes (%) (Auto) 9.1 L 9.0 L 10.0-50.0 % Monocytes (%) (Auto) 16.0 H 16.5 H 0.0-12.0 % Eosinophils (%) (Auto) 6.2 5.9 0.0-7.0 % Basophils (%) (Auto) 1.0 0.9 0.0-2.0 % Neutrophils # (Auto) 4.5 4.9 1.6-8.6 10 ^3/uL Lymphocytes # (Auto) 0.6 0.7 0.4-5.4 10 ^3/uL Monocytes # (Auto) 1.1 1.2 0-1.3 10 ^3/uL Eosinophils # (Auto) 0.4 0.4 0-0.8 10 ^3/uL Basophils # (Auto) 0.1 0.1 0-0.2 10 ^3/uL Nucleated Red Blood Cells 0.0 0.0 % Sodium Level 140 140 136-145 mmol/L Potassium Level 3.8 4.3 3.5-5.1 mmol/L Chloride Level 104 104 98-107 mmol/L Carbon Dioxide Level 25 27 20-31 mmol/L Anion Gap 11 9 5-15 Blood Urea Nitrogen 23 30 H 9-23 mg/dL Creatinine 2.05 H 2.12 H 0.700-1.30 mg/dL Glomerular Filtration Rate Calc 33 32 >90 mL/min BUN/Creatinine Ratio 11.2 14.2 10.0-20.0 Serum Glucose 91 98 74-106 mg/dL Calcium Level 8.6 L 8.6 L 8.7-10.4 mg/dL B-Type Natriuretic Peptide 336.74 0-100 pg/mL Assessment Chronic kidney disease stage IIIB ; Dr. Gasca. solitary kidney Coronary artery disease hx Aortic valve disease Diabetes Chest pain Hypertension From a nephrology standpoint patient's kidney function is consistent with chronic kidney disease and his outpatient baseline. From a nephrology standpoint patient can be discharged and followed up outpatient Given pulm congestion on admission he recieved IV lasix improved symptom. I recommend lasis po daily to continue in outpatient and cardiology f/u or PCP f/u on sunday for titration. Patient advised to take addition dose in afternoons if swollen or sob Defer management to cardiology in regards to echo finds Status post ultrasound of the kidney- solitary kidney Echo shows severe aortic valve disease defer to cardiology Plan discussed with: Patient BASILIA NAVARRETE MD Jun 27, 2025 15:58
--- NOTE | 2025-06-27 17:08 | DVHDS2 ---
Discharge Summary Date of Admission Jun 26, 2025 at 20:38 Date of Discharge: Jun 27, 2025 Labs/Diagnostic Data: Laboratory Results Test 06/27/25 09:50 06/27/25 04:59 06/26/25 19:42 Troponin I High Sensitivity 104 ng/L (</=54) White Blood Count 6.7 10^3/uL (4.4-10.8) Red Blood Count 3.15 10^6/uL (4.5-5.90) Hemoglobin 9.6 g/dL (13.5-17.5) Hematocrit 29.1 % (41.0-53.0) Mean Corpuscular Volume 92.3 fL (80.0-100.0) Mean Corpuscular Hemoglobin 30.5 pg (28.0-32.0) Mean Corpuscular Hemoglobin Concent 33.1 g/dL (32.0-36.0) Red Cell Distribution Width 18.1 % (11.8-14.3) Platelet Count 251 10^3/uL (140-450) Mean Platelet Volume 10.3 fL (6.9-10.8) Neutrophils (%) (Auto) 67.7 % (37.0-80.0) Lymphocytes (%) (Auto) 9.1 % (10.0-50.0) Monocytes (%) (Auto) 16.0 % (0.0-12.0) Eosinophils (%) (Auto) 6.2 % (0.0-7.0) Basophils (%) (Auto) 1.0 % (0.0-2.0) Neutrophils # (Auto) 4.5 10 ^3/uL (1.6-8.6) Lymphocytes # (Auto) 0.6 10 ^3/uL (0.4-5.4) Monocytes # (Auto) 1.1 10 ^3/uL (0-1.3) Eosinophils # (Auto) 0.4 10 ^3/uL (0-0.8) Basophils # (Auto) 0.1 10 ^3/uL (0-0.2) Nucleated Red Blood Cells 0.0 % Sodium Level 140 mmol/L (136-145) Potassium Level 3.8 mmol/L (3.5-5.1) Chloride Level 104 mmol/L (98-107) Carbon Dioxide Level 25 mmol/L (20-31) Anion Gap 11 (5-15) Blood Urea Nitrogen 23 mg/dL (9-23) Creatinine 2.05 mg/dL (0.700-1.30) Glomerular Filtration Rate Calc 33 mL/min (>90) BUN/Creatinine Ratio 11.2 (10.0-20.0) Serum Glucose 91 mg/dL (74-106) Calcium Level 8.6 mg/dL (8.7-10.4) B-Type Natriuretic Peptide 336.74 pg/mL (0-100) Other Laboratory Tests 06/27/25 04:59 Brief Hx & Hospital Course: 75-year-old male with a known history of CAD status post three-vessel CABG, status post PCI with stents, status post aortic valve replacement, history of prostate cancer status post prostatectomy, history of renal cancer status post right nephrectomy, recent history of liver cancer status post resection presented to the hospital with the increasing shortness of breaths found to have mildly elevated troponin as well as acute on chronic congestive heart failure exacerbation. Patient was recently hospitalized for the chest pain and elevated troponin was left against medical advice. Patient was seen by Cardiology and Nephrology during this hospital cessation and currently cleared to be discharged on Lasix p.o. patient is being discharged under stable condition with a close follow up as an outpatient with the PCP and Cardiology as well as Nephrology in 1-2 weeks. Condition at Discharge: Stable Final Diagnosis/Problems List 1.Elevated troponin suspect secondary to decreased renal clearance 2. Acute on chronic congestive heart failure exacerbation with systolic dysfunction currently compensated 3. CAD status post CABG 4. Status post aortic valve replacement 5. Hypertension 6. History of liver cancer status post resection Discharge Disposition: Home with [facility] Services [facility] Discharge Will this Physician continue t: No Discharge Instruct/Medications New Medications: Furosemide (Lasix) 40 Mg Tab 40 MG PO DAILY, #30 TAB Continued Medications: Cholestyramine (Questran Powder) 4 Gm Pw 4 GM PO BID, #14 POW Clonidine Hydrochloride (Clonidine Hcl) 0.1 Mg Tab 0.1 MG PO HS for 30 Days, MG Clopidogrel Bisulfate (Plavix) 75 Mg Tab 75 MG PO DAILY, TAB Levothyroxine Sodium (Levothyroxine Sodium) 112 Mcg Tab 112 MCG PO QAM for 30 Days, MCG Metoprolol Succinate (Metoprolol Succinate Er) 50 Mg Tab 50 MG PO DAILY for 30 Days, MG Simvastatin (Simvastatin) 10 Mg Tab 5 MG PO QPM for 30 Days, MG Scheduled Cholestyramine (Questran Powder), 4 GM PO BID Clonidine Hydrochloride (Clonidine Hcl), 0.1 MG PO HS, (Reported) Clopidogrel Bisulfate (Plavix), 75 MG PO DAILY, (Reported) Furosemide (Lasix), 40 MG PO DAILY Levothyroxine Sodium (Levothyroxine Sodium), 112 MCG PO QAM, (Reported) Metoprolol Succinate (Metoprolol Succinate Er), 50 MG PO DAILY, (Reported) Simvastatin (Simvastatin), 5 MG PO QPM, (Reported) Discontinued Medications Clonidine Hydrochloride (Clonidine Hcl), 1 TAB PO, (Reported) Levothyroxine Sodium (Levothyroxine Sodium), 1 TAB PO DAILYPRN, (Reported) Metoprolol Succinate (Metoprolol Succinate Er), 1 TAB PO DAILYPRN, (Reported) Vancomycin HCl (Vancomycin HCl), 125 MG PO QID Discharge Statement: "Patient was advised to return to the ER or call 911 if any headaches, dizziness, shortness of breath, chest pain, abdominal pain, bleeding, fevers, or worsening of medical condition. Patient was counseled about treatment plan, medications, possible side effects, patientverbalized understanding. All questions were answered to the best of my ability. This discharge took greater then 30 minutes in planning, reviewing documentation, counseling the patient, and discussing with other team members." ASSESSMENT ASSESSMENT Assessment Date of Service: Jun 27, 2025 Billing Provider: MONIK COLLAZO MD Common Visit Codes: NOT BILLABLE MONIK COLLAZO MD Jun 27, 2025 17:08
[2025-06-27 17:09] VITALS: BP 137/90; PULSE 71; RESP 18; TEMP 98; O2SAT 97
[2025-06-27] MEDS ORDERED: FURO1TAB31 PO (17:09)
--- NOTE | 2025-06-27 21:24 | DVHPN2 ---
Progress Note - Dictate Date Seen: Jun 27, 2025 Medical Necessity Reason Pt with a Central, PICC or Fol: No Subjective Patient was seen and evaluated in follow up. Patient is c/o intermittent of chest pain. HGB 9.6, HCT 29.1, [employer] 2.05, CA 8.6, TROP 96 > 104. Telemetry reviewed. vital signs Vital Sign Date Time Temp Pulse Resp B/P (MAP) Pulse Ox O2 Delivery O2 Flow Rate FiO2 06/27/25 09:09 97.7 71 20 143/100 (114) 99 97.7 06/27/25 08:00 Room Air* 0 99 21 Total Intake and Output 06/26/25 06/26/25 06/27/25 15:00 23:00 07:00 Intake Total 400 ml Output Total 600 ml Balance -200 ml medications Current Medications Medications Dose Ordered Sig/Pamela Route Start Time Stop Time Status Last Admin Dose Admin Docusate Sodium 100 mg BIDPRN PRN PO 06/26/25 20:45 Acetaminophen 650 mg Q6HP PRN PO 06/26/25 20:45 Ondansetron HCl 4 mg Q4HP PRN IV 06/26/25 20:45 Nitroglycerin 0.4 mg Q5MINP PRN SL 06/26/25 20:45 Clopidogrel Bisulfate 75 mg DAILY PO 06/27/25 10:00 06/27/25 09:07 75 MG Levothyroxine Sodium 112 mcg QAM@0600 PO 06/27/25 06:00 06/27/25 05:12 112 MCG Metoprolol Succinate 50 mg DAILY PO 06/27/25 10:00 06/27/25 09:07 50 MG Furosemide 40 mg DAILY IV 06/27/25 10:00 06/27/25 09:06 40 MG objective GENERAL: Alert and oriented x 3. No acute distress. EYES: PERRL, EOMI. Anicteric. HENT: Moist mucous membranes. LUNGS: Clear to auscultation bilaterally. CARDIOVASCULAR: Regular rate and rhythm. ABDOMEN: Soft, non-tender and non-distended. EXTREMITIES: No edema. NEUROLOGIC: No focal neurological deficits. SKIN: Warm, dry. laboratory and microbiology Laboratory Tests 06/27/25 04:59 Test 06/27/25 04:59 Range/Units Serum Glucose 91 74-106 mg/dL Problem List Elevated troponin. Dyspnea. Acute kidney injury on CKD. Fluid overload. Acute on chronic CHF exacerbation. CAD s/p 3 vessel CABG. History of cancer s/p partial liver resection. History of prostate cancer s/p prostatectomy. Assessment/Plan Continued all current supportive medical care. Echocardiogram. Plavix, Metoprolol. Diuretics with Lasix. Nitro SL. Additional plan as per the hospital course. Plan discussed with: Patient LILLIAM CHANDLER MD Jun 27, 2025 12:22
--- NOTE | 2025-06-29 12:18 | ECG ---
[facility] Test Date: 2025-06-26 Test Time: 19:15:31 Pat Name: SHEYLA MENDOZA Department: ED Room: [facility]5T A Gender: M [employer]: WENDI : 1950 Requested By: NHUNG THOMSON Order Number: [id number] Reading MD: Frederick Thompson Measurements Intervals [place] Rate: 76 P: 24 SD: 160 QRS: -29 QRSD: 99 T: 20 QT: 427 QTc: 481 Interpretive Statements Sinus rhythm Left ventricular hypertrophy Anterolateral infarct, old Electronically Signed On 06-29-2025 15:24:56 PST by Frederick Thompson Please click the below link to view image of tracing.
== END 2025-06-27 18:15 | disposition home or self-care (01) | DRG 291 ==
LOC: ER 18:55 → OVERFLOW 20:38 → TELE-WESTW 22:55
PROVIDERS: ADMIT Nurse Practitioner Family; ATTEND Nurse Practitioner Family
DX: I13.0 Hypertensive heart and chronic kidney disease with heart failure and stage 1 through stage 4 chronic kidney disease, or unspecified chronic kidney disease (principal); I50.23 Acute on chronic systolic (congestive) heart failure; N17.9 Acute kidney failure, unspecified; Z95.1 Presence of aortocoronary bypass graft; N18.32 Chronic kidney disease, stage 3b; J44.9 Chronic obstructive pulmonary disease, unspecified; M10.9 Gout, unspecified; I25.10 Atherosclerotic heart disease of native coronary artery without angina pectoris; Z85.05 Personal history of malignant neoplasm of liver; Z88.5 Allergy status to narcotic agent; Z88.0 Allergy status to penicillin; Z79.899 Other long term (current) drug therapy; Z82.3 Family history of stroke; Z83.3 Family history of diabetes mellitus; Z82.49 Family history of ischemic heart disease and other diseases of the circulatory system; Z80.9 Family history of malignant neoplasm, unspecified; I25.2 Old myocardial infarction; Z85.46 Personal history of malignant neoplasm of prostate; Z85.53 Personal history of malignant neoplasm of renal pelvis
CPT/HCPCS: 36415; 71045; 80048; 83880; 84484; 85025; 93005; 99291; G0378